=== PATIENT | male | born 1975 | race Caucasian/White ===

== ENCOUNTER 2017-09-17 18:06 | Emergency (ER) | payer OTHER ==
[~2017-09-17] VITALS: Ht 177.8 cm; Wt 138.0 kg
[2017-09-17 18:10] VITALS: TEMP 36.7; Ht 177.8 cm; Wt 138.0 kg
[2017-09-17] MEDS ORDERED: LOSA1TAB PO (18:45)
--- NOTE | 2017-09-17 18:46 | EMERGENCY ROOM VISIT NOTE ---
History First contact with patient: 18:13 Chief Complaint: FEVER Stated Complaint: SOAR THROAT, FEVER History of Present Illness The patient is a 42 year old male who presents to the Emergency Room with complaints of a sore throat which began 2 days ago. The patient states that he woke up 2 days ago with a mild sore throat which has been gradually worsening. He states that the throat feels scratchy and rates his discomfort a 10/10. He has had a mild cough. He states it has been hard to sleep due to the sore throat for the past few nights. He has been feeling feverish, but has not taken his temperature. He does not smoke. He has not taken any medications for his pain. He denies any headache, neck pain, nausea/vomiting, chest pain, shortness of breath, blurred vision or dizziness. The patient reports a history of hypertension and was previously taking losartan, but states that he has not seen a primary care provider in some time and does not have a prescription for this any longer. Review of Systems A complete 10 point review of systems was reviewed with the patient with pertinent positives and negatives as per history of present illness. All else were negative. Social History Smoking Status: Former Smoker Current/Historical Medications Scheduled Azithromycin (Zithromax Z-Jose F), 0 PO UD Losartan Potassium (Cozaar), 1 TAB PO DAILY Scheduled PRN Diphenhy/Alum/Mag/Sucralfa (Magic Swizzle - Diphenhy/Alum/Mag/Sucralfa), 1 TSP PO Q4H PRN for Pain Physical Exam Vital Signs Date Time Temp Pulse Resp B/P (MAP) Pulse Ox O2 Delivery O2 Flow Rate FiO2 09/17/17 19:42 76 16 167/101 98 09/17/17 18:43 180/106 97 Room Air 09/17/17 18:10 36.7 100 18 213/122 96 Physical Exam VITALS: Vitals are noted on the nurse's note and reviewed by myself. Vital signs stable. GENERAL: This is a 42-year-old male, in no acute distress, nondiaphoretic, well- developed well-nourished. SKIN: The skin was without rashes. EARS: External auditory canals clear, tympanic membranes pearly black without erythema or effusion bilaterally. EYES: Pupils equal round and reactive to light and accommodation. NOSE: Patent, turbinates without inflammation or discharge. No sinus tenderness. MOUTH: Mucous membranes moist. Tonsils are not enlarged. There is no exudate present. The posterior oropharynx is slightly injected. NECK: Supple without nuchal rigidity. No lymphadenopathy. HEART: Regular rate and rhythm without murmurs gallops or rubs. LUNGS: Clear to auscultation bilaterally without wheezes, rales or rhonchi. No retractions or accessory muscle use. NEURO: Patient was alert and oriented to person place and time. Medical Decision & Procedures Medications Administered Medications (Trade) Dose Ordered Sig/Aayush Route Start Time Stop Time Status Last Admin Dose Admin Losartan Potassium (coZAAR TAB) 50 mg NOW STAT PO 09/17/17 18:57 09/17/17 19:01 DC 09/17/17 19:21 50 MG Medical Decision Or enteritis, viral pharyngitis, upper respiratory infection, acute bronchitis, mononucleosis, influenza, among others. The patient was evaluated as above. He is very well-appearing and has a benign exam. He has some mild erythema of the posterior oropharynx but nothing suggestive of bacterial infection at this time. A strep swab was obtained and was negative. Culture is pending. I feel the patient likely has a viral upper respiratory infection. Positive his symptoms are likely caused by some postnasal drip. He was counseled on span-eaw-swkjwrm measures. The patient was very persistent that he may need an antibiotic and will not be able to follow-up with a primary care provider. For this reason, he was given a prescription of Zithromax but was told not to fill this unless he has worsening symptoms or fevers in 3-4 days. He was given Magic swizzle for symptomatic relief of his sore throat, as this is very distressing to him. Incidentally, the patient's blood pressure was noted to be significantly elevated in triage, at 213/122. The patient's blood pressure was rechecked when he had that in his room for a few minutes and was found to be 180/106. The patient does not have any dizziness, blurred vision, chest pain or shortness of breath. He does report a history of hypertension and has not been taking his blood pressure medication for some time now. The patient will be restarted on his losartan and was instructed to have very close follow-up with his primary care provider for recheck of his blood pressure and medication adjustments. He verbalized understanding of my assessment and treatment plan and was discharged home in good condition. Medication Reconcilliation Current Medication List: was personally reviewed by me Blood Pressure Screening Patient's blood pressure: Elevated blood pressure Blood pressure disposition: Referred to PCP Impression Primary Impression: Viral pharyngitis Departure Information Dispostion Home / Self-Care Condition GOOD Prescriptions Azithromycin (ZITHROMAX Z-JOSE F) 250 Mg Tab 0 PO UD, #1 PKT 2 TABS DAY 1, THEN 1 TAB DAILY FOR 4 DAYS Prov: Graciela Truong PA-C 09/17/17 Diphenhy/Alum/Mag/Sucralfa (Magic Swizzle - Diphenhy/Alum/Mag/Sucralfa) Susp 1 TSP PO Q4H Y for Pain, #150 ML 30ML DIPHENHYDRAMINE SLN 12.5/5ML 60ML MAALOX 4GM CARAFATE SWISH AND SPIT Prov: Graciela Truong PA-C 09/17/17 Losartan Potassium (COZAAR) 25 Mg Tab 1 TAB PO DAILY for 30 Days, #30 TAB Prov: Graciela Truong PA-C 09/17/17 Referrals Figueroa Espinosa M.D. (PCP) Patient Instructions My [facility] Additional Instructions Take the losartan daily prescribed for your blood pressure. You will need close follow-up for this. You should contact her primary care provider to schedule an appointment this week to have your blood pressure rechecked. For pain control, you can use the following ewdi-zbu-sxfafiq medicines (if >12 yo): - Regular strength (325mg/tab) Tylenol (acetaminophen) 2 tabs every 4-6 hours as needed. Do not exceed 12 tablets in a 24 hour period. Avoid taking more than 4 grams (4000 mg) of Tylenol per day. This includes any other sources of acetaminophen you may take on a regular basis. - Regular strength (200 mg/tab) Advil (ibuprofen) 1-2 tabs every 4-6 hours as needed. Do not exceed a dose of 3200 mg per day. Magic swizzle: Swish 5 mL in your mouth and spit. You may use this every 4 hours as needed for pain. Only fill the prescription for the antibiotic if your symptoms worsen in the next 3-4 days or if you develop high fevers or cough productive of sputum. As with any visit to the emergency Department, you should follow-up with her primary care provider. Return to the emergency department with worsening fevers, shortness of breath, vomiting, chest pain, dizziness, blurred vision or any other new/concerning symptoms.
[2017-09-17] MEDS ORDERED: LOSARTAN POTASSIUM 25 MG TAB PO STA (18:57)
[2017-09-17] MEDS ORDERED: MAGIC SWIZZLE PO STA ×2 (18:57→19:05)
[2017-09-17] MEDS ORDERED: MAGIC1 PO (19:25)
[2017-09-17] MEDS ORDERED: AZITTAB PO (19:29)
[2017-09-17 19:42] VITALS: BP 167/101; PULSE 76; O2SAT 98
== END 2017-09-17 19:43 | disposition home or self-care (01) ==
LOC: C.EDB 18:07
DX: J02.8 Acute pharyngitis due to other specified organisms (principal); I10 Essential (primary) hypertension; Z87.891 Personal history of nicotine dependence

== ENCOUNTER 2025-02-05 23:28 | Inpatient (IN) ==
[2025-02-06] MEDS: SODIUM CHLORIDE 0.9% 1,000 ML IV ONE (00:05)
[2025-02-06] MEDS: ONDANSETRON INJ 2 MG/ML 2 ML VIAL IV STA (00:06)
--- NOTE | 2025-02-06 00:09 | Emergency Department Note ---
History of Present Illness General Chief complaint: Abdominal Pain Stated complaint: ABD PAIN Time Seen by Provider: 02/05/25 23:38 History of Present Illness Maximum Pain Intensity: 10 This 49-year-old male presents ER complaining of abdominal pain with subjective fever and chills for the past few days steadily getting worse. No colonoscopy. No history of diverticulitis. Patient feels constipated. He now feels nauseous. Patient denies chest pain, dyspnea, urinary symptoms, flank pain. Home Medications Medication Instructions Recorded Confirmed Type albuterol sulfate 90 mcg/actuation 2 puff inhalation Q4 PRN 02/06/25 02/06/25 History aerosol inhaler COUGH,SOB,WHEEZING codeine 10 mg-guaifenesin 100 mg/5 5 ml PO Q8 PRN Cough 02/06/25 02/06/25 History mL oral liquid famotidine 20 mg tablet 20 mg PO BID 02/06/25 02/06/25 History fluticasone 250 mcg-salmeterol 50 1 inh inhalation AMHS 02/06/25 02/06/25 History mcg/dose blistr powdr for inhalation glipizide 5 mg tablet, extended 5 mg PO DAILYBB 02/06/25 02/06/25 History release 24 hr hydrochlorothiazide 12.5 mg capsule 12.5 mg PO QAM 02/06/25 02/06/25 History irbesartan 300 mg tablet 300 mg PO QAM 02/06/25 02/06/25 History metformin 500 mg tablet,extended 1,000 mg PO AMHS 02/06/25 02/06/25 History release 24 hr Allergies Allergy/AdvReac Type Severity Reaction Status Date / Time Penicillins Allergy Mild HIVES, Unverified 02/06/25 01:33 ITCHING Sulfa (Sulfonamide Allergy Mild HIVES Unverified 03/05/19 09:18 Antibiotics) PRICILLA D Allergy Mild ITCHING, Uncoded 03/05/19 09:18 HIVES Past Med/Surg History Problem List Pneumoperitoneum (Acute) Diverticulitis (Acute) COVID-19 (Acute) Asthma No significant past surgical history Social History Smoking Status: Never smoker Preferred Language: Spanish current occupational status: employed Feels Safe at Home: Yes Review of Systems A total of 10 systems reviewed and were otherwise negative Physical Exam Vital Signs Vital Signs - 24 hr 02/05/25 23:14 02/05/25 23:14 02/05/25 23:51 Temperature 37.7 C H 37.7 C H Temperature Source Oral Oral Pulse Rate 91 H 112 H Pulse Rate [Apical] Pulse Rate from SpO2 Sensor 92 H Pulse Rhythm Regular Pulse Strength Normal Respiratory Rate 17 18 Respiratory Effort / Characteristics Non-Labored Spontaneous Respiratory Depth Normal Respiratory Pattern Regular Blood Pressure 121/87 Blood Pressure [Right Arm] Blood Pressure Mean 98 Blood Pressure Mean [Right Arm] Blood Pressure Position Sitting Pulse Oximetry 95 95 Oxygen Delivery Method Room Air Room Air Sepsis Recent Fever Within 48 Hours No Sepsis New/Unexplained Change in Mental Status N/A Sepsis Action Taken by Nursing No Action Required 02/06/25 00:00 02/06/25 00:04 02/06/25 00:08 Temperature Temperature Source Pulse Rate 90 90 Pulse Rate [Apical] 79 Pulse Rate from SpO2 Sensor 90 Pulse Rhythm Pulse Strength Respiratory Rate 8 L 18 Respiratory Effort / Characteristics Respiratory Depth Respiratory Pattern Blood Pressure 132/71 Blood Pressure [Right Arm] 132/71 Blood Pressure Mean 91 Blood Pressure Mean [Right Arm] 91 Blood Pressure Position Pulse Oximetry 95 97 Oxygen Delivery Method Room Air Sepsis Recent Fever Within 48 Hours Sepsis New/Unexplained Change in Mental Status Sepsis Action Taken by Nursing 02/06/25 01:00 02/06/25 02:00 02/06/25 03:00 Temperature Temperature Source Pulse Rate Pulse Rate [Apical] 88 83 82 Pulse Rate from SpO2 Sensor Pulse Rhythm Pulse Strength Respiratory Rate 17 16 14 Respiratory Effort / Characteristics Respiratory Depth Normal Respiratory Pattern Blood Pressure Blood Pressure [Right Arm] 125/76 151/96 H 134/82 Blood Pressure Mean Blood Pressure Mean [Right Arm] 92 114 99 Blood Pressure Position Pulse Oximetry 99 98 98 Oxygen Delivery Method Room Air Sepsis Recent Fever Within 48 Hours Sepsis New/Unexplained Change in Mental Status Sepsis Action Taken by Nursing VITALS: Vitals are noted on the nurse's note and reviewed by myself. Vital signs stable. GENERAL: Pleasant gentleman with family present, in no acute distress, nondiaphoretic, well-developed well-nourished. SKIN: Capillary reflex less than 2 seconds. HEENT: Normocephalic. PERRLA. EOMI. Nares patent. Mucous membranes moist. Neck is supple without nuchal rigidity. HEART: Regular rate and rhythm LUNGS: Clear to auscultation bilaterally without wheezes, rales or rhonchi. No retractions or accessory muscle use. ABDOMEN: Positive bowel sounds x 4. Normal tympanic percussion. Soft, tender to palpation left lower quadrant, without masses or organomegaly. Julian sign negative. No guarding or rebound tenderness. no CVA tenderness MUSCULOSKELETAL: No gross musculoskeletal defects. NEURO: Patient was alert and oriented to person place and time. No focal neurological deficits. Course Administered Medications Discontinued Medications Acetaminophen (Ofirmev) 1,000 mg in 100 mls @ 400 mls/hr IV NOW STA Stop: 02/06/25 00:03 Last Infusion: 02/06/25 00:55 Dose: Infused Documented By: Admin: 02/06/25 00:10 Dose: 400 mls/hr Documented By: KATHERINE Ciprofloxacin (Cipro / D5w) 400 mg in 200 mls @ 100 mls/hr IV NOW STA; Protocol Stop: 02/06/25 01:48 Last Infusion: 02/06/25 03:00 Dose: Infused Documented By: Admin: 02/06/25 00:49 Dose: 100 mls/hr Documented By: LILIAN Metronidazole (Flagyl) 500 mg in 100 mls @ 100 mls/hr IV NOW STA; Protocol Stop: 02/06/25 00:48 Last Infusion: 02/06/25 02:01 Dose: Infused Documented By: Admin: 02/06/25 00:50 Dose: 100 mls/hr Documented By: LILIAN Sodium Chloride (Nss) 1,000 mls @ 999 mls/hr IV .Q1H1M ONE Stop: 02/06/25 00:49 Last Infusion: 02/06/25 01:16 Dose: Infused Documented By: Admin: 02/06/25 00:05 Dose: 999 mls/hr Documented By: KATHERINE Ioversol (Optiray 320 100ml) 100 ml IV ONCE ONE Stop: 02/06/25 00:28 Last Admin: 02/06/25 00:27 Dose: 93 ml Documented By: RONALD Morphine Sulfate (Morphine Sulfate 4 Mg/Ml 1 Ml Carp\Vial) 4 mg IV NOW STA Stop: 02/06/25 01:22 Last Admin: 02/06/25 01:58 Dose: 4 mg Documented By: MNS Ondansetron HCl (Ondansetron Inj 2 Mg/Ml 2 Ml Vial) 4 mg IV NOW STA Stop: 02/05/25 23:50 Last Admin: 02/06/25 00:06 Dose: 4 mg Documented By: KATHERINE Medical Decision Making Medical Records Attestation: I reviewed the patient's medical records. Home Medications Current Medication List: was personally reviewed by me Laboratory Data Attestation: I reviewed the patient's lab results. 02/05/25 23:49 02/05/25 23:49 Lab Results 02/05/25 02/06/25 02/06/25 Range/Units 23:49 00:16 00:46 WBC 10.66 (4.8-10.8) K/ul RBC 5.25 (4.70-6.10) M/uL Hgb 14.6 (14.0-18.0) g/dl Hct 43.4 (42.0-52.0) % MCV 82.7 (80.0-100.0) fL MCH 27.8 (25.0-34.0) pg MCHC 33.6 (32.0-36.0) g/dL RDW Std Deviation 38.3 (36.4-46.3) fL RDW Coeff of Jason 12.6 (11.5-14.5) % Plt Count 189 (130-400) K/uL MPV 11.6 (9.4-12.4) fL Immature Gran % (Auto) 0.7 % Neut % (Auto) 67.9 % Lymph % (Auto) 19.3 % Ponce % (Auto) 9.9 % Eos % (Auto) 1.8 % Baso % (Auto) 0.4 % Neut # (Auto) 7.24 H (1.40-6.50) K/uL Lymph # (Auto) 2.06 (1.20-3.40) K/uL Ponce # (Auto) 1.06 H (0.11-0.59) K/uL Eos # (Auto) 0.19 (0.00-0.50) K/uL Baso # (Auto) 0.04 (0.00-0.20) K/uL Immature Gran # (Auto) 0.07 (0.01-0.20) K/uL Sodium 135 L (136-145) mmol/L Potassium 3.8 (3.5-5.1) mmol/L Chloride 100 (98-107) mmol/L Carbon Dioxide 25 (21-32) mmol/L Anion Gap 10 (3-11) BUN 23 (6-23) mg/dl Creatinine 1.32 (0.6-1.4) mg/dl Est Cr Clr Drug Dosing 89.8 ml/min eGFR 65.71 BUN/Creatinine Ratio 17.4 (10-20) Glucose 227 H (70-99(Fasting)) mg/dl Lactate 0.8 (0.4-2.0) mmol/L Calcium 8.9 (8.6-10.3) mg/dl Total Bilirubin 1.4 H (0.2-1.0) mg/dl AST 10 L (13-39) U/L ALT 15 (7-52) U/L Alkaline Phosphatase 60 (34-104) U/L Total Protein 6.8 (6.0-8.3) gm/dl Albumin 4.1 (3.4-5.0) gm/dl Globulin 2.7 (2.5-4.0) gm/dl Albumin/Globulin Ratio 1.5 (0.9-2) Lipase 40 (11-82) U/L Urine Color Yellow Urine Appearance Clear (Clear) Urine pH 5.0 (4.5-7.5) Ur Specific Mentor > 1.045 H (1.000-1.030) Urine Protein Negative (Negative) Urine Glucose (UA) 2+ H (Negative) Urine Ketones 1+ H (Negative) Urine Blood Negative (Negative) Urine Nitrite Negative (Negative) Urine Bilirubin Negative (Negative) Urine Urobilinogen Negative (Negative) Ur Leukocyte Esterase Negative (Negative) Imaging Data Attestation: I personally reviewed and interpreted this imaging study as follows: Radiologist's Impression: Abdomen/Pelvis CT 02/05/25 23:49 EXAM: CT abd pelvis IV con only CLINICAL HISTORY: LLQ pain, fever TECHNIQUE: Contiguous axial images were obtained from the level of the diaphragm to the pubic symphysis with intravenous contrast. Coronal and sagittal reconstructions were likewise performed and indicated to increase the sensitivity for detecting clinically relevant pathology. If IV contrast material had not been administered, the likelihood of detecting abnormalities relevant to the patient's condition would have been substantially decreased. CT scan was performed according to ALARA (as low as reasonable achievable). COMPARISON: 03/05/2019 06:06:40 CUSTOMER QUALITY SPECIALIST FINDINGS: The visualized lung bases are clear. The liver is normal in size and reduced attenuation. No focal liver lesions are seen. There is no intra or extrahepatic biliary ductal dilatation. Hepatic vasculature is patent. The gallbladder is distended and shows few soft calculi with normal wall thickness. The spleen, pancreas, and adrenal glands are unremarkable. The kidneys are normal in size and attenuation. There is no hydronephrosis or perinephric fat stranding. No renal calculi or renal masses are identified. The ureters are normal in caliber and no ureteral calculi are seen. The bladder is normal in contour. Pelvic viscera are unremarkable. No focal or diffuse bowel wall thickening or evidence of bowel obstruction is identified. No evidence of inflamed appendix. Abdominal and pelvic vasculature is patent. No adenopathy or fluid collections are seen. No aggressive appearing osseous lesions are identified. Few small descending and sigmoid diverticulosis with mild fat stranding is noted adjacent to the sigmoid diverticula along with pneumoperitoneum:- suggestive of sigmoid diverticulitis IMPRESSION: 1. Few small descending and sigmoid diverticulosis with mild fat stranding is noted adjacent to the sigmoid diverticula along with pneumoperitoneum: suggestive of sigmoid diverticulitis with perforation. New finding. 2. Uncomplicated cholelithiasis.-stable. 3. Hepatic steatosis.-stable. Electronically signed by Figueroa Manning 02-06-2025 03:37 AM MDM Narrative Prior records/ancillary studies reviewed. Triage Nursing notes reviewed. Additional history obtained from family. The patient's history was concerning for abdominal pain. Differential diagnosis: Etiologies such as appendicitis, diverticulitis, PUD, biliary pathology, UTI, pancreatitis, obstruction, mesenteric ischemia, aortic pathology, infections, inflammatory bowel disease, renal colic, as well as others were entertained. Physical examination findings: As above. ER treatment provided: An order was placed for continuous cardiac monitoring. The monitor shows a rate of 60-100 with a sinus rhythm per my Independent interpretation. IV fluids, Tylenol, Cipro and Flagyl for possible diverticulitis On reassessment the patient felt better. Diagnostics interpreted by me: The labs Independently Interpreted by myself revealed no worrisome leukocytosis, negative lactic, hyperglycemia without DKA Imaging studies: Imaging was reviewed and read by radiology Consultation: A consultation was placed with the hospitalist. The case was discussed and diagnostics were reviewed. The patient was evaluated in the ER for further treatment. Consultation was placed with surgery and the case was discussed. Patient will be evaluated by the surgical team. Surgery recommends medical admission and n.p.o. Exam and history seem consistent with diverticulitis with pneumoperitoneum. No drainable abscess. Negative lactic. No high white count. He was given antibiotics upon initial evaluation as I was concerned he did have diverticulitis. Blood cultures are pending. Medicine and surgery were consulted. Patient was admitted to the medical service. He is agreeable. By the evaluation outlined above emergent etiologies such as appendicitis, PUD, biliary pathology, UTI, pancreatitis, obstruction, mesenteric ischemia, aortic pathology, inflammatory bowel disease, renal colic, as well as others were deemed relatively unlikely. The pt informed about the findings as listed above. All questions were answered and pleased with the treatment. The chart was completed utilizing [employer] Speech voice recognition software. Grammatical errors, random word insertions, pronoun errors, and incomplete sentences are an occassional consequence of this system due to software limitations, ambient noise, and hardware issues. Any formal questions or concerns about the content, text, or information contained within the body of this dictation should be directly addressed to the physician shop assistant for clarification. Impression & Plan Diverticulitis, Pneumoperitoneum Discharge Plan Visit Data Chief Complaint: Abdominal Pain Stated Complaint: ABD PAIN ED Provider: Jeanne Wilkinson ED Midlevel Provider: Meaghan Joseph Discharge Problem: Diverticulitis, Pneumoperitoneum Patient Disposition: Admitted As Inpatient Condition: Fair Forms Stand Alone Forms: [employer] [facility] [employer] Prescriptions Prescriptions: No Action fluticasone propion-salmeterol 250-50 mcg/dose blister with device 1 inh INHALATION AMHS hydrochlorothiazide 12.5 mg capsule 12.5 mg PO QAM albuterol sulfate 90 mcg/actuation HFA aerosol inhaler 2 puff INHALATION Q4 PRN (Reason: COUGH,SOB,WHEEZING) irbesartan 300 mg tablet 300 mg PO QAM codeine-guaifenesin 10-100 mg/5 mL liquid 5 ml PO Q8 PRN (Reason: Cough) glipizide 5 mg tablet extended release 24hr 5 mg PO DAILYBB famotidine 20 mg tablet 20 mg PO BID metformin 500 mg tablet extended release 24 hr 1,000 mg PO AMHS Referrals Referrals: Zeny Montes PA-C [Primary Care Provider] -
[2025-02-06] MEDS: ACETAMINOPHEN 1,000 MG/100 ML VIAL IV STA (00:10)
[2025-02-06 00:13] LABS: Albumin Globulin Ratio 1.5 (0.9-2); Albumin Level 4.1 gm/dl (3.4-5.0); BUN Creatinine Ratio 17.4 (10-20); Bilirubin,Total 1.4 mg/dl (0.2-1.0); Calcium 8.9 mg/dl (8.6-10.3); Creatinine Clr Calc Pharmacy 89.8 ml/min; Globulin 2.7 gm/dl (2.5-4.0); Potassium 3.8 mmol/L (3.5-5.1); Total Protein 6.8 gm/dl (6.0-8.3)
[2025-02-06 00:18] LABS: Basophils # (auto) 0.04 K/uL (0.00-0.20); Basophils % (auto) 0.4 %; Eosinophils # (auto) 0.19 K/uL (0.00-0.50); Eosinophils % (auto) 1.8 %; Hematocrit (blood only) 43.4 % (42.0-52.0); Hemoglobin 14.6 g/dl (14.0-18.0); Immature Granulocytes # (auto) 0.07 K/uL (0.01-0.20); Immature Granulocytes % (auto) 0.7 %; Lymphocytes # (auto) 2.06 K/uL (1.20-3.40); Lymphocytes % (auto) 19.3 %; Mean Corpuscular Hemoglobin 27.8 pg (25.0-34.0); Mean Corpuscular Hgb Conc 33.6 g/dL (32.0-36.0); Mean Corpuscular Volume 82.7 fL (80.0-100.0); Mean Platelet Volume 11.6 fL (9.4-12.4); Monocytes # (auto) 1.06 K/uL (0.11-0.59); Monocytes % (auto) 9.9 %; Neutrophils # (auto) 7.24 K/uL (1.40-6.50); Neutrophils % (auto) 67.9 %; Platelet Count 189 K/uL (130-400); RDW Coefficient of Variation 12.6 % (11.5-14.5); RDW Standard Deviation 38.3 fL (36.4-46.3); Red Blood Count 5.25 M/uL (4.70-6.10); White Blood Count 10.66 K/ul (4.8-10.8)
[2025-02-06] MEDS: OPTIRAY 320 100ml IV ONE (00:27)
[2025-02-06] MEDS: CIPROFLOXACIN / D5W 400 MG/200 ML BAG IV STA (00:49)
[2025-02-06] MEDS: metroNIDAZOLE 500 MG/100 ML BAG IV STA (00:50)
[2025-02-06 00:54] LABS: Appearance Urine Clear (Clear); Bilirubin Urine Negative (Negative); Blood Urine Negative (Negative); Color Urine Yellow; Glucose Urine UA 2+ (Negative); Ketones Urine 1+ (Negative); Leukocyte Esterase Urine Negative (Negative); Nitrite Urine Negative (Negative); Protein Urine Negative (Negative); Specific Gravity Urine > 1.045 (1.000-1.030); Urobilinogen Urine Negative (Negative)
[2025-02-06] MEDS: MoRPHine SULFATE 4 MG/ML 1 ML CARP\\VIAL IV STA (01:58)
--- NOTE | 2025-02-06 03:37 | CT Scan Report ---
EXAM: CT abd pelvis IV con only CLINICAL HISTORY: LLQ pain, fever TECHNIQUE: Contiguous axial images were obtained from the level of the diaphragm to the pubic symphysis with intravenous contrast. Coronal and sagittal reconstructions were likewise performed and indicated to increase the sensitivity for detecting clinically relevant pathology. If IV contrast material had not been administered, the likelihood of detecting abnormalities relevant to the patient's condition would have been substantially decreased. CT scan was performed according to ALARA (as low as reasonable achievable). COMPARISON: 03/05/2019 06:06:40 HOTEL OPERATION MANAGER FINDINGS: The visualized lung bases are clear. The liver is normal in size and reduced attenuation. No focal liver lesions are seen. There is no intra or extrahepatic biliary ductal dilatation. Hepatic vasculature is patent. The gallbladder is distended and shows few soft calculi with normal wall thickness. The spleen, pancreas, and adrenal glands are unremarkable. The kidneys are normal in size and attenuation. There is no hydronephrosis or perinephric fat stranding. No renal calculi or renal masses are identified. The ureters are normal in caliber and no ureteral calculi are seen. The bladder is normal in contour. Pelvic viscera are unremarkable. No focal or diffuse bowel wall thickening or evidence of bowel obstruction is identified. No evidence of inflamed appendix. Abdominal and pelvic vasculature is patent. No adenopathy or fluid collections are seen. No aggressive appearing osseous lesions are identified. Few small descending and sigmoid diverticulosis with mild fat stranding is noted adjacent to the sigmoid diverticula along with pneumoperitoneum:- suggestive of sigmoid diverticulitis IMPRESSION: 1. Few small descending and sigmoid diverticulosis with mild fat stranding is noted adjacent to the sigmoid diverticula along with pneumoperitoneum: suggestive of sigmoid diverticulitis with perforation. New finding. 2. Uncomplicated cholelithiasis.-stable. 3. Hepatic steatosis.-stable. Electronically signed by Figueroa Manning 02-06-2025 03:37 AM
--- NOTE | 2025-02-06 04:07 | Surgery Consultation ---
<Statement entered by Barbara Gomez DO - 02/06/25 10:26> I have seen and examined this patient this am. I agree with this plan and NPO except may have few ice chips per shift for oral comfort. Date of Consultation February 06, 2025 Assessment & Plan (1) Diverticulitis: (2) Pneumoperitoneum: I discussed with the treating emergency room physician and the patient is being admitted on the hospitalist service. From surgery perspective we recommend the following: Analgesics to be provided Antiemetics to be provided Strict n.p.o. status should be implemented Antibiotics have been initiatedthe treating clinician emergency department has utilized Cipro and Flagyl due to a noted penicillin allergy. This antibiotic regimen should continue Patient to be hydrated with intravenous fluids Serial labs should be followed At the present time the patient is nontoxic appearing (he is normotensive without tachycardia and only a low-grade fever. He does not have leukocytosis or an elevated lactic acid level. Acute kidney injury is not noted on labs. He does not have signs of peritonitis on physical exam). Therefore we will attempt conservative measures as outlined above. I did discuss with the patient the findings on his CT scan. I did discuss with the patient that it would be preferable to treat him in a conservative manner as noted above, as any emergent surgery would likely require a temporary colostomy. I also discussed with the patient that it is preferable for patients to have a recent/up-to-date colonoscopy prior to doing bowel surgery. I also discussed with the patient that there is a possibility however, that conservative measures as outlined above may fail and he will require an emergent operation requiring a temporary colostomy. He did express his understanding and had all of his questions answered. I discussed this case and the above plan with my attending physician, Dr. Plascencia SCDs along to be used for DVT prevention for the present time until it is ascertained whether or not the patient will require any surgical/procedural intervention Additional recommendations were forthcoming based on his clinical course as it unfolds History of Present Illness Reason for Consultation: Diverticulitis History of Present Illness This is a 49-year-old male who presented to the emergency department secondary to abdominal pain that began approximately 3 days ago. Patient notes that the pain is located in a bandlike fashion across his lower abdomen without radiation or modifying factors (other than that it was improved with medicines administered in the emergency department). Patient also notes that he has not had a solid bowel movement approximately 3 days and has had associated nausea without vomiting, which was a prompting factors causing him to present to the emergency department. Patient notes he has never had any abdominal surgeries in the past. He also notes that he has yet to have a colonoscopy (he notes he was planning on scheduling in April of this year). At home the patient did not report any fevers but was noted to have a low-grade fever in the emergency department. Since arrival to the emergency department patient has had labs and imaging which I independent reviewed. CBC revealed white blood cell count was normal. Hemoglobin and hematocrit as well as a platelet count was normal. Chemistry profile showed sodium is 135 with a normal potassium. BUN and creatinine were both within the normal range. He did not have an elevated lipase. He did have a slight elevation of his total bilirubin at 1.4, but the remainder of his LFTs were unremarkable. Urinalysis was not indicative of infection. A lactic acid level was not elevated at 0.8. Imaging consisted of a CT scan of the abdomen pelvis. This showed the patient had sigmoid diverticulosis with fat stranding adjacent to the sigmoid diverticula suggestive of sigmoid diverticulitisthere is also adjacent pneumoperitoneum noted. At the time of my interview he was resting comfortably in bed he was in no distress. Concerning past medical history the patient says he is treated for hypertension and diabetes (type II) Concerning past surgical history he has never had surgery Concerning allergies he notes penicillin causes itching/hives Concerning social history he is a lifetime non-smoker Concerning family history his father suffered from coronary artery disease Allergies Allergy/AdvReac Type Severity Reaction Status Date / Time fexofenadine [From Danielle-D] Allergy Mild Itching, Verified 02/06/25 04:15 Hives Penicillins Allergy Mild HIVES, Unverified 02/06/25 01:33 ITCHING pseudoephedrine Allergy Mild Itching, Verified 02/06/25 04:15 [From Danielle-D] Hives Sulfa (Sulfonamide Allergy Mild HIVES Unverified 03/05/19 09:18 Antibiotics) Home Medications Medication Instructions Recorded Confirmed Type albuterol sulfate 90 mcg/actuation 2 puff inhalation Q4 PRN 02/06/25 02/06/25 History aerosol inhaler COUGH,SOB,WHEEZING codeine 10 mg-guaifenesin 100 mg/5 5 ml PO Q8 PRN Cough 02/06/25 02/06/25 History mL oral liquid famotidine 20 mg tablet 20 mg PO BID 02/06/25 02/06/25 History fluticasone 250 mcg-salmeterol 50 1 inh inhalation AMHS 02/06/25 02/06/25 History mcg/dose blistr powdr for inhalation glipizide 5 mg tablet, extended 5 mg PO DAILYBB 02/06/25 02/06/25 History release 24 hr hydrochlorothiazide 12.5 mg capsule 12.5 mg PO QAM 02/06/25 02/06/25 History irbesartan 300 mg tablet 300 mg PO QAM 02/06/25 02/06/25 History metformin 500 mg tablet,extended 1,000 mg PO AMHS 02/06/25 02/06/25 History release 24 hr Patient History Social History Smoking Status: Never smoker Preferred Language: Vietnamese current occupational status: employed Feels Safe at Home: Yes Review of Systems Review of Systems: All systems reviewed & are unremarkable except as noted in HPI & below Physical Exam Constitutional: WD/WN, vitals as above Eyes: no conjunctival abnormality Wears glasses ENMT: Ears: no hearing impairment and no external ear abnormality Oral mucosas dry Neck: trachea midline Respiratory: normal respiratory effort; no respiratory distress and no labored breathing Cardiovascular: Rate/Rhythm: regular rate and regular rhythm Vessels: dorsalis pedis pulses present and radial pulses present Gastrointestinal (Abdomen): Abdomen is soft with minimal distention. Patient did have pain with palpation across his lower abdomen which appear to be greatest in the left lower quadrant. There is no voluntary guarding. There is only slight rebound tenderness but no overt signs of peritonitis Musculoskeletal: No calf tenderness Skin: no rashes Neurologic: moves all extremities Psychiatric: A+Ox3, euthymic affect Results & Data Vital Signs (Past 12 Hours) Vital Signs Temp Pulse Pulse Resp BP BP Pulse Ox 02/06/25 03:00 82 14 134/82 98 02/06/25 02:00 83 16 151/96 H 98 02/06/25 01:00 88 17 125/76 99 02/06/25 00:08 90 02/06/25 00:04 90 18 132/71 97 02/06/25 00:00 79 8 L 132/71 95 02/05/25 23:51 112 H 18 95 02/05/25 23:14 37.7 C H 02/05/25 23:14 37.7 C H 91 H 17 121/87 95 O2 Del Method 02/06/25 03:00 02/06/25 02:00 02/06/25 01:00 Room Air 02/06/25 00:08 02/06/25 00:04 Room Air 02/06/25 00:00 02/05/25 23:51 Room Air 02/05/25 23:14 02/05/25 23:14 Room Air PG Care Time/CCT Total # of Minutes Spent Total Time Spent with Patient: Total time spent is greater than 50% in coordination of care (as documented) at patient's floor/unit and/or counseling patient: Coding Level of Care Code 32156 IN/OBS CONSULT LVL 5,80M Diagnoses Diverticulitis K57.92 Pneumoperitoneum K66.8
[2025-02-06] MEDS: SODIUM CHLORIDE 0.9% 1,000 ML IV SCH ×3 (04:22→17:40)
--- NOTE | 2025-02-06 04:42 | History & Physical Report ---
Date of Service February 06, 2025 Assessment & Plan (1) Sepsis: Plan: Sepsis secondary to complicated diverticulitis hypertension, slightly elevated bronchial asthma, stable DM2 on oral medications, well-controlled as of recent hemoglobin A1c of 6.24 December 2023 GERD, stable on home H2 aidee past tobacco abuse Admit to med/tele CS, Ertapenem General Surgery consult Re: Complicated diverticulitis (Patient already seen at the ER by provider who recommends strict n.p.o. status.) Outpatient GI consult for colonoscopy (Patient was scheduled for his for screening colonoscopy April 2025.) Basal bolus insulin adjusted for n.p.o. status, ISS BG goal 110-140, update hemoglobin A1c DVT prophylaxis. SCDs as per general surgery specifications given possible procedure Full code Text document was generated using [employer] voice recognition software. It may contain grammatical or spelling errors. Kindly contact undersigned for clarification of any documentation item in question. History of Present Illness Chief Complaint: Abdominal pain Primary Care Provider: Zeny Montes PA-C History obtained from patient, family, and records. Medical history significant for hypertension, bronchial asthma, DM2 on oral medications, GERD, past tobacco abuse. Few days history of achy lower abdominal pain which slowly progressed. Constipation symptoms which is unusual for him. Chills at home. Denies chest pain, SOB. Cipro and Flagyl administered at the ER for perforated sigmoid diverticulitis on CT. Medical History as above No prior colonoscopies Surgical History : None Family History : Asthma, DM, heart disease Personal/Social history : Past tobacco abuse, occasional EtOH intake, EMT Allergies Allergy/AdvReac Type Severity Reaction Status Date / Time fexofenadine [From Danielle-D] Allergy Mild Itching, Verified 02/06/25 04:15 Hives Penicillins Allergy Mild HIVES, Unverified 02/06/25 01:33 ITCHING pseudoephedrine Allergy Mild Itching, Verified 02/06/25 04:15 [From Danielle-D] Hives Sulfa (Sulfonamide Allergy Mild HIVES Unverified 03/05/19 09:18 Antibiotics) Home Medications Medication Instructions Recorded Confirmed Type albuterol sulfate 90 mcg/actuation 2 puff inhalation Q4 PRN 02/06/25 02/06/25 History aerosol inhaler COUGH,SOB,WHEEZING codeine 10 mg-guaifenesin 100 mg/5 5 ml PO Q8 PRN Cough 02/06/25 02/06/25 History mL oral liquid famotidine 20 mg tablet 20 mg PO BID 02/06/25 02/06/25 History fluticasone 250 mcg-salmeterol 50 1 inh inhalation AMHS 02/06/25 02/06/25 History mcg/dose blistr powdr for inhalation glipizide 5 mg tablet, extended 5 mg PO DAILYBB 02/06/25 02/06/25 History release 24 hr hydrochlorothiazide 12.5 mg capsule 12.5 mg PO QAM 02/06/25 02/06/25 History irbesartan 300 mg tablet 300 mg PO QAM 02/06/25 02/06/25 History metformin 500 mg tablet,extended 1,000 mg PO AMHS 02/06/25 02/06/25 History release 24 hr Past Med/Surg History Problem List Sepsis Pneumoperitoneum (Acute) Diverticulitis (Acute) COVID-19 (Acute) Asthma No significant past surgical history Social History Smoking Status: Never smoker Preferred Language: Mongolian current occupational status: employed Feels Safe at Home: Yes Review of Systems Review of Systems: As per HPI, all other systems reviewed and negative Physical Exam Physical Exam: GENERAL: Slightly uncomfortable, morbidly obese, pleasant, no respiratory distress SKIN: Normal color, warm HEENT: Respectful, Many palpebral conjunctivae, no ptosis, dry buccal mucosa NECK : Supple, no tenderness CHEST : CTA, no tenderness HEART : RRR, no obvious murmurs ABDOMEN: Some distention, hypogastric tenderness EXTREMITIES : Minimal LE swelling, no LE tenderness, palpable pulses, no other conspicuous deformities noted NEUROLOGIC : Coherent, no facial asymmetry, no other gross focality Results & Data Results & Data Vital Signs (Past 12 Hours) Vital Signs Temp Pulse Pulse Resp BP BP Pulse Ox 02/06/25 04:05 82 02/06/25 03:00 82 14 134/82 98 02/06/25 02:00 83 16 151/96 H 98 02/06/25 01:00 88 17 125/76 99 02/06/25 00:08 90 02/06/25 00:04 90 18 132/71 97 02/06/25 00:00 79 8 L 132/71 95 02/05/25 23:51 112 H 18 95 02/05/25 23:14 37.7 C H 02/05/25 23:14 37.7 C H 91 H 17 121/87 95 O2 Del Method 02/06/25 04:05 02/06/25 03:00 02/06/25 02:00 02/06/25 01:00 Room Air 02/06/25 00:08 02/06/25 00:04 Room Air 02/06/25 00:00 02/05/25 23:51 Room Air 02/05/25 23:14 02/05/25 23:14 Room Air Laboratory Results Laboratory Results WBC 10.66 K/ul (4.8-10.8) 02/05/25 23:49 RBC 5.25 M/uL (4.70-6.10) 02/05/25 23:49 Hgb 14.6 g/dl (14.0-18.0) 02/05/25 23:49 Hct 43.4 % (42.0-52.0) 02/05/25 23:49 MCV 82.7 fL (80.0-100.0) 02/05/25 23:49 MCH 27.8 pg (25.0-34.0) 02/05/25 23:49 MCHC 33.6 g/dL (32.0-36.0) 02/05/25 23:49 RDW Std Deviation 38.3 fL (36.4-46.3) 02/05/25 23:49 RDW Coeff of Jason 12.6 % (11.5-14.5) 02/05/25 23:49 Plt Count 189 K/uL (130-400) 02/05/25 23:49 MPV 11.6 fL (9.4-12.4) 02/05/25 23:49 Immature Gran % (Auto) 0.7 % 02/05/25 23:49 Neut % (Auto) 67.9 % 02/05/25 23:49 Lymph % (Auto) 19.3 % 02/05/25 23:49 [place] % (Auto) 9.9 % 02/05/25 23:49 Eos % (Auto) 1.8 % 02/05/25 23:49 Baso % (Auto) 0.4 % 02/05/25 23:49 Neut # (Auto) 7.24 K/uL (1.40-6.50) H 02/05/25 23:49 Lymph # (Auto) 2.06 K/uL (1.20-3.40) 02/05/25 23:49 [place] # (Auto) 1.06 K/uL (0.11-0.59) H 02/05/25 23:49 Eos # (Auto) 0.19 K/uL (0.00-0.50) 02/05/25 23:49 Baso # (Auto) 0.04 K/uL (0.00-0.20) 02/05/25 23:49 Immature Gran # (Auto) 0.07 K/uL (0.01-0.20) 02/05/25 23:49 Sodium 135 mmol/L (136-145) L 02/05/25 23:49 Potassium 3.8 mmol/L (3.5-5.1) 02/05/25 23:49 Chloride 100 mmol/L (98-107) 02/05/25 23:49 Carbon Dioxide 25 mmol/L (21-32) 02/05/25 23:49 Anion Gap 10 (3-11) 02/05/25 23:49 BUN 23 mg/dl (6-23) 02/05/25 23:49 Creatinine 1.32 mg/dl (0.6-1.4) 02/05/25 23:49 Est Cr Clr Drug Dosing 89.8 ml/min 02/05/25 23:49 eGFR 65.71 02/05/25 23:49 BUN/Creatinine Ratio 17.4 (10-20) 02/05/25 23:49 Glucose 227 mg/dl (70-99(Fasting)) H 02/05/25 23:49 Lactate 0.8 mmol/L (0.4-2.0) 02/06/25 00:16 Calcium 8.9 mg/dl (8.6-10.3) 02/05/25 23:49 Total Bilirubin 1.4 mg/dl (0.2-1.0) H 02/05/25 23:49 AST 10 U/L (13-39) L 02/05/25 23:49 ALT 15 U/L (7-52) 02/05/25 23:49 Alkaline Phosphatase 60 U/L (34-104) 02/05/25 23:49 Total Protein 6.8 gm/dl (6.0-8.3) 02/05/25 23:49 Albumin 4.1 gm/dl (3.4-5.0) 02/05/25 23:49 Globulin 2.7 gm/dl (2.5-4.0) 02/05/25 23:49 Albumin/Globulin Ratio 1.5 (0.9-2) 02/05/25 23:49 Lipase 40 U/L (11-82) 02/05/25 23:49 Urine Color Yellow 02/06/25 00:46 Urine Appearance Clear (Clear) 02/06/25 00:46 Urine pH 5.0 (4.5-7.5) 02/06/25 00:46 Ur Specific [place] > 1.045 (1.000-1.030) H 02/06/25 00:46 Urine Protein Negative (Negative) 02/06/25 00:46 Urine Glucose (UA) 2+ (Negative) H 02/06/25 00:46 Urine Ketones 1+ (Negative) H 02/06/25 00:46 Urine Blood Negative (Negative) 02/06/25 00:46 Urine Nitrite Negative (Negative) 02/06/25 00:46 Urine Bilirubin Negative (Negative) 02/06/25 00:46 Urine Urobilinogen Negative (Negative) 02/06/25 00:46 Ur Leukocyte Esterase Negative (Negative) 02/06/25 00:46 Impressions Abdomen/Pelvis CT 02/05/25 23:49 EXAM: CT abd pelvis IV con only CLINICAL HISTORY: LLQ pain, fever TECHNIQUE: Contiguous axial images were obtained from the level of the diaphragm to the pubic symphysis with intravenous contrast. Coronal and sagittal reconstructions were likewise performed and indicated to increase the sensitivity for detecting clinically relevant pathology. If IV contrast material had not been administered, the likelihood of detecting abnormalities relevant to the patient's condition would have been substantially decreased. CT scan was performed according to ALARA (as low as reasonable achievable). COMPARISON: 03/05/2019 06:06:40 CORPORATE DIRECTOR OF HUMAN RESOURCES FINDINGS: The visualized lung bases are clear. The liver is normal in size and reduced attenuation. No focal liver lesions are seen. There is no intra or extrahepatic biliary ductal dilatation. Hepatic vasculature is patent. The gallbladder is distended and shows few soft calculi with normal wall thickness. The spleen, pancreas, and adrenal glands are unremarkable. The kidneys are normal in size and attenuation. There is no hydronephrosis or perinephric fat stranding. No renal calculi or renal masses are identified. The ureters are normal in caliber and no ureteral calculi are seen. The bladder is normal in contour. Pelvic viscera are unremarkable. No focal or diffuse bowel wall thickening or evidence of bowel obstruction is identified. No evidence of inflamed appendix. Abdominal and pelvic vasculature is patent. No adenopathy or fluid collections are seen. No aggressive appearing osseous lesions are identified. Few small descending and sigmoid diverticulosis with mild fat stranding is noted adjacent to the sigmoid diverticula along with pneumoperitoneum:- suggestive of sigmoid diverticulitis IMPRESSION: 1. Few small descending and sigmoid diverticulosis with mild fat stranding is noted adjacent to the sigmoid diverticula along with pneumoperitoneum: suggestive of sigmoid diverticulitis with perforation. New finding. 2. Uncomplicated cholelithiasis.-stable. 3. Hepatic steatosis.-stable. Electronically signed by Figueroa Manning 02-06-2025 03:37 AM
[2025-02-06] MEDS ORDERED: PROMETHAZINE 12.5 MG/50.5 ML BAG IV PRN (04:51)
[2025-02-06] MEDS ORDERED: LORazepam 2 MG/1 ML VIAL IV PRN (04:51)
[2025-02-06] MEDS ORDERED: KETOROLAC TROMETHAMINE 15 MG/ML VIAL IV PRN (04:51)
[2025-02-06] MEDS: MoRPHine SULFATE 4 MG/ML 1 ML CARP\\VIAL IV PRN ×2 (05:30→19:28)
[2025-02-06] MEDS ORDERED: GLUCOSE 40% GEL 15 GM TUBE PO PRN (06:35)
[2025-02-06] MEDS ORDERED: CARBOHYDRATES FOR HYPOGLYCEMIA PO PRN (06:35)
[2025-02-06] MEDS ORDERED: GLUCAGON FOR INJ 1 MG VIAL SQ PRN (06:35)
[2025-02-06] MEDS ORDERED: GLUCOSE 10 TAB/TUBE PO PRN (06:35)
[2025-02-06] MEDS ORDERED: DEXTROSE 50% 50 ML SYRINGE IV PRN (06:35)
[2025-02-06 06:40] LABS: Basophils # (auto) 0.03 K/uL (0.00-0.20); Basophils % (auto) 0.3 %; Eosinophils # (auto) 0.02 K/uL (0.00-0.50); Eosinophils % (auto) 0.2 %; Hematocrit (blood only) 44.8 % (42.0-52.0); Hemoglobin 14.4 g/dl (14.0-18.0); Immature Granulocytes # (auto) 0.05 K/uL (0.01-0.20); Immature Granulocytes % (auto) 0.5 %; Lymphocytes # (auto) 0.74 K/uL (1.20-3.40); Lymphocytes % (auto) 7.5 %; Mean Corpuscular Hgb Conc 32.1 g/dL (32.0-36.0); Mean Corpuscular Volume 87.2 fL (80.0-100.0); Mean Platelet Volume 10.9 fL (9.4-12.4); Monocytes # (auto) 0.92 K/uL (0.11-0.59); Monocytes % (auto) 9.4 %; Neutrophils # (auto) 8.07 K/uL (1.40-6.50); Neutrophils % (auto) 82.1 %; Platelet Count 129 K/uL (130-400); RDW Coefficient of Variation 12.8 % (11.5-14.5); RDW Standard Deviation 41.3 fL (36.4-46.3); Red Blood Count 5.14 M/uL (4.70-6.10); White Blood Count 9.83 K/ul (4.8-10.8)
[2025-02-06 06:52] LABS: INR 1.1 (0.9-1.1); Partial Thromboplastin Ratio 0.9; Partial Thromboplastin Time 25 Seconds (21-31); Prothrombin Time 11.4 Seconds (9.0-12.0)
[2025-02-06 07:06] LABS: Calcium 8.4 mg/dl (8.6-10.3); Potassium 4.3 mmol/L (3.5-5.1)
[2025-02-06 07:12] LABS: BUN Creatinine Ratio 17.4 (10-20); Creatinine Clr Calc Pharmacy 108.8 ml/min
[2025-02-06] MEDS: FAMOTIDINE 20MG IV PUSH 20 MG/5 ML SYR IV SCH (07:25)
[2025-02-06] MEDS: INSULIN ASPART PER UNIT CHARGE SC SCH ×2 (07:39→09:13)
--- OUTSIDE RECORDS SUMMARY | 2025-02-06 08:17 | External Medical Summary | Summary of Care ---
Author Name Unknown Organization [facility] Address [address] [place] [address] Phone [phone] Care Team Providers Care Assistant Professor In Family Studies Name Role Phone Kimi Johnson MD Primary Care Pr ovider Reason for Visit * Reason Onset Date Comments Blood Pressure Check 01/15/2025 Encounter Details Date Type Department Care Team (Late st Contact Info) Description 01/15/2025 Telephone Family Medicine [address] [phone] Kimi Johnson MD [address] [place], [place] [address] [phone] Blood Pressure Check Allergies Active Allergy Reactions Criticality Noted Date Comments Penicillins Hives High 03/21/2002 developed hives at end of amoxil documented as of this encounter (statuses as of 01/16/2025) Medications Contour Next Test In Vitro Strip (Glucose Blood)Indicatio ns:DM type 2, goal HbA1c < 7% ([facility]) Use to test your blood sugar once a day 100 Strip 3 09/10/20 20 Active Karen Microlet LancetsIndicati ons:DM type 2, goal HbA1c < 7% ([facility]) Use to test blood sugar once a day 100 Each 3 09/10/20 20 Active Fluticasone Propionate 50 MCG/ACT Nasal Suspension Administer 1 [place] into nostril in the morning. 16 g 4 01/03/20 24 Active glipiZIDE ER 5 MG Oral Tablet Extended Release 24 Hour (Glucotrol XL)Indications: DM type 2, goal HbA1c < 7% (HCC) TAKE ONE TABLET BY MOUTH BEFORE FIRST MEAL OF THE DAY 90 Tablet 3 01/24/20 24 Active Cyclobenzaprine HCl 10 MG Oral Tablet (Flexeril) Take 1 Tablet by mouth in the morning and 1 Tablet at noon and 1 Tablet before bedtime. 03/03/20 24 Active Famotidine 20 MG Oral Tablet (Pepcid)Indicat ions:Heartburn TAKE ONE TABLET BY MOUTH TWICE DAILY 180 Tablet 1 11/16/19 25 Active metFORMIN HCl ER 500 MG Oral Tablet Extended Release 24 Hour (Glucophage XR)Indications: DM type 2, goal HbA1c < 7% (HCC) Take 2 Tablets by mouth in the morning and 2 Tablets before bedtime. 360 Tablet 1 11/16/19 25 Active Albuterol Sulfate HFA 108 (90 Base) MCG/ACT Inhalation Aerosol Solution Inhale 2 Puffs by mouth every 4 hours as needed for Cough, Shortness of Breath or Wheezing. 18 g 5 11/26/19 25 Active Irbesartan 300 MG Oral Tablet (Avapro)Indicat ions:Primary hypertension Take 1 Tablet by mouth in the morning. 90 Tablet 3 01/02/20 25 Active Fluticasone-Kwabena meterol 250-50 MCG/ACT Inhalation Aerosol Powder Breath Activated (Advair Diskus) Inhale 1 Puff by mouth in the morning and 1 Puff before bedtime. 60 Each 5 01/02/20 25 Active hydroCHLOROthia zide 12.5 MG Oral Capsule Take 1 Capsule by mouth in the morning. 30 Capsule 3 01/17/20 25 Active guaiFENesin-Cod eine 200-10 MG/5ML Oral Liquid Take 5 mL by mouth every 8 hours as needed for Cough. 150 mL 11/26/19 25 025 Discontinued predniSONE 20 MG Oral Tablet (Deltasone) Take 2 Tablets by mouth in the morning for 5 days. 10 Tablet 11/26/19 25 025 Discontinued(P atient preference/dis continuation) predniSONE 20 MG Oral Tablet (Deltasone) Take 2 Tablets by mouth in the morning for 5 days. 10 Tablet 01/02/20 25 025 Discontinued(P atient preference/dis continuation) documented as of this encounter (statuses as of 01/16/2025) Active Problems Problem Noted Date Diagnosed Date CKD (chronic kidney disease), stage II Overview (10/19/2021): EGFR 84 Chronic allergic rhinitis 11/02/2017 DM type 2, goal HbA1c < 7% 12/20/2016 Overview (07/08/2020): hgba1c 6.5 Mild persistent asthma without complication 08/17 Gastroesophageal reflux disease without esophagi tis 05/20/2015 HTN, goal below 140/90 08/31/2012 documented as of this encounter (statuses as of 01/16/2025) Resolved Problems Problem Noted Date Diagnosed Date Resolved Date Morbid obesity with BMI of 40.0-44.9, adult 05/12/2021 01/01/2025 Overview (05/12/2021): 290 Body mass index (BMI) of 40. 0 to 44.9 in adult 07/24/2018 06/02/2021 Overview: Per Obesity protocol #1 Allergic rhinitis 12/20/2016 10/19/2021 Asthma exacerbation 08/26/2015 08/26/20 15 Prediabetes 07/15/2015 07/08/2020 BMI 45.0-49.9, adult 05/20/2015 018 Overview: Per Obesity protocol #1 ADVANCE DIRECTIVE INFORMATION 09/20/2006 08/20/2024 Overview (09/20/2006): No, Advance Directive brochure offered , patient declined. Tobacco use disorder 015 documented as of this encounter (statuses as of 01/16/2025) Immunizations Name Administration Dates Next Due COVID-19 mRNA, LNP-s, No Pre serve, 2-Dose Series (Moderna) 10/05/2021,11/11/2020,10/14/2020 COVID-19, MRNA-LNP, PF, 30 M CG/0.3 mL, 12 YRS AND ABOVE, IM (PFIZER-Comirnat) 01/03/2024 Hepatitis B, 20+ yrs 05/06/2021,11/05/2020,09/02 Pneumococcal Conjugate Vacci ne, 20-valent ([id number]) 11/23/2022 Pneumococcal Polysaccharide PPV23 (Pneumovax) 11/02/2017 Seasonal Influenza Vac., MDV , IM, 0.5 mL (Fluzone) 08/17/2019,08/28/2018,07/17/2015,08/13,08/06/2010 Seasonal Influenza, Quadriva lent, No Preserve, IM 06/17/2022,08/17/2021,06/17/2020,07/28 TDAP (age 10 and older)(Boostrix) 09/02/2020 TDAP, Age 7 and older, IM (Adacel) 03/23/2010 documented as of this encounter Social History Tobacco Use Types Packs/Day Years Used Date Smoking Tobacco: Former Cigarettes 0.5 15 0 10/17/1998 - 10/17/2013 Smokeless Tobacco: Never Alcohol Use Standard Drinks/Week Comments Yes 1 (1 standard drink = 0.6 oz pur e alcohol) occas PHQ-2 Answer Date Recorded PHQ-2 Score -1 09/02/2020 Hunger Vital Sign Answer Date Recorded Worried About Running Out of Food in the Last Ye ar Never true 12/03/2019 Ran Out of Food in the Last Year Never true 12/03/2019 Sex and Gender Information Value Date Recorded Sex Assigned at Not on file Legal Sex Male 5:27 AM EST Gender Identity Not on file Sexual Orientation Not on file 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 Recommend adding a second BP medicine. If he tolerates it well, we can do the two medications in a combination pill on next fill. If he is amenable, I will send HCTZ to the pharmacy for him to start. * Telephone Encounter - Desirae Elaine LPN - 01/15/2025 8:53 AM EDT Pt presented for BP check BP today was 154/88 Pt states he is taking increased dosage of Irbesartan & did take it today. States this is a much better BP reading than it has been & having no issues at this time. documented in this encounter Plan of Treatment Upcoming Encounters Date Type Department Care Team (Latest Contact Info) Description 02/18/2025 6:00 PM EDT Office Visit Family [address] [place] [phone] Kimi Johnson MD [address] [place] [address] [place] [phone] 05/13/2025 8:00 AM EDT Hospital Encounter [facility] [address] [phone] Adarsh Hayes MD [address] [place] [id number] 05/13/2025 8:00 AM EDT - 05/13/2025 8:30 AM EDT Surgery [facility], [facility] [address] [place] [phone] Adarsh Hayes MD [address] [place] [address] COLONOSCOPY FLEXIBLE PROXIMAL DIAGNOSTIC Scheduled Procedures Name Priority Associated Diagnoses Date/Ti me COLONOSCOPY FLEXIBLE PROXIMAL DIAGNOSTIC Screening for colon cancer 05/13/2025 8:00 AM EDT Health Maintenance Due Date Last Done Comments Depression Screening 1986 HIV Screening 1989 Cologuard 2019 Colonoscopy 2019 Colorectal Cancer Screening 2019 Fecal Occult Blood Test 2019 Sigmoidoscopy 2019 Diabetic Eye Exam 04/05/2023 04/05/2022, 08/27/2020 Diabetic Foot Exam 11/23/2023 11/23/2022, 0 10/19/2021, 09/02/2020 Albumin/Creatinine Ratio 03/01/2024 023, 05/31/2022, 05/12/2021, Additional history exists Zoster Vaccines (1 of 2) 2024 COVID-19 Vaccine ( season) 2024 01/03/2024, 10/05/2021, 11/11/2020, Additional history exists HbA1c 06/21/2024 12/20/2023, 020 04/2023, 05/31/2022, Additional history exists GFR 12/19/2024 12/20/2023, 020 04/2023, 10/19/2021, Additional history exists Influenza Vaccine (FLU shot) (Season Ended) 2025 06/17/2022, 08/17/2021, 06/17/2020, Additional history exists Lipid Panel 12/19/2028 12/20/2023, 020 04/2023, 10/19/2021, Additional history exists DTap/Tdap Vaccines (3 - Td or Tdap) 09/02/2030 09/02/2020, 03/23/2010 Hepatitis B Vaccine Completed 05/06/2021, 11/05/2020, 09/02/2020 Pneumococcal Vaccine: 50+ Years Completed 11/23/2022, 11/02/2017 HPV (Gardasil) Vaccine Aged Out No lo nger eligible based on patient's age to complete this topic MENINGOCOCCAL (MENACTRA/MENVEO) Aged Out No longer eligible based on patient's age to complete this topic Meningitis B Vaccine (Bexsero/Trumemba) Aged Out No longer eligible based on patient's age to complete this topic documented as of this encounter Medical Devices Not on filedocumented as of this encounter Visit Diagnoses Diagnosis HTN, goal below 140/90- Primary Unspecified essential hypertension Screening for colon cancer Special screening for malignant neoplasms, colon documented in this encounter Care Teams Assistant Professor In Family Studies Relationship Specialty Start Date End Date Kimi Johnson MD [address] [place] [address] [place] [phone] PCP - General Family Medicine 01/01/25 documented as of this encounter
--- OUTSIDE RECORDS SUMMARY | 2025-02-06 08:17 | External Medical Summary | Summary of Care ---
Author Name Unknown Organization [facility] Address [address] [facility] [place] [address] Phone [phone] Care Team Providers Care Sales Product Specialist Name Role Phone Kimi Johnson MD Primary Care Pr ovider Encounter Details Date Type Department Care Team (Late st Contact Info) Description 01/15/2025 9:00 AM EDT Nurse Only Ancillary [address] [place] [address] [place], Nurse [address] [place] [address] Arrived Allergies Active Allergy Reactions Criticality Noted Date Comments Penicillins Hives High 03/21/2002 developed hives at end of amoxil documented as of this encounter (statuses as of 01/15/2025) Medications Contour Next Test In Vitro Strip (Glucose Blood)Indications :DM type 2, goal HbA1c < 7% ([facility]) Use to test your blood sugar once a day 100 Strip 3 0 Active Karen Microlet LancetsIndication s:DM type 2, goal HbA1c < 7% ([facility]) Use to test blood sugar once a day 100 Each 3 0 Active Fluticasone Propionate 50 MCG/ACT Nasal Suspension Administer 1 [place] into nostril in the morning. 16 g 4 4 Active glipiZIDE ER 5 MG Oral Tablet Extended Release 24 Hour (Glucotrol XL)Indications:DM type 2, goal HbA1c < 7% (HCC) TAKE ONE TABLET BY MOUTH BEFORE FIRST MEAL OF THE DAY 90 Tablet 3 4 Active Cyclobenzaprine HCl 10 MG Oral Tablet (Flexeril) Take 1 Tablet by mouth in the morning and 1 Tablet at noon and 1 Tablet before bedtime. 4 Active Famotidine 20 MG Oral Tablet (Pepcid)Indicatio ns:Heartburn TAKE ONE TABLET BY MOUTH TWICE DAILY 180 Tablet 1 5 Active metFORMIN HCl ER 500 MG Oral Tablet Extended Release 24 Hour (Glucophage XR)Indications:DM type 2, goal HbA1c < 7% (HCC) Take 2 Tablets by mouth in the morning and 2 Tablets before bedtime. 360 Tablet 1 5 Active guaiFENesin-Codei ne 200-10 MG/5ML Oral Liquid Take 5 mL by mouth every 8 hours as needed for Cough. 150 mL 5 Active Albuterol Sulfate HFA 108 (90 Base) MCG/ACT Inhalation Aerosol Solution Inhale 2 Puffs by mouth every 4 hours as needed for Cough, Shortness of Breath or Wheezing. 18 g 5 5 Active Irbesartan 300 MG Oral Tablet (Avapro)Indicatio ns:Primary hypertension Take 1 Tablet by mouth in the morning. 90 Tablet 3 5 Active Fluticasone-Salme terol 250-50 MCG/ACT Inhalation Aerosol Powder Breath Activated (Advair Diskus) Inhale 1 Puff by mouth in the morning and 1 Puff before bedtime. 60 Each 5 5 Active documented as of this encounter (statuses as of 01/15/2025) Active Problems Problem Noted Date Diagnosed Date CKD (chronic kidney disease), stage II 2 Overview (10/19/2021): EGFR 84 Chronic allergic rhinitis 11/02/2017 DM type 2, goal HbA1c < 7% 12/20/2016 Overview (07/08/2020): hgba1c 6.5 Mild persistent asthma without complication 08/17 Gastroesophageal reflux disease without esophagi tis 05/20/2015 Primary hypertension 08/31/2012 documented as of this encounter (statuses as of 01/15/2025) Resolved Problems Problem Noted Date Diagnosed Date [...] as of this encounter (statuses as of 01/15/2025) Immunizations Name Administration Dates Next Due COVID-19 mRNA, LNP-s, No Pre serve, 2-Dose Series (Moderna) 10/05/2021,11/11/2020,10/14/2020 COVID-19, MRNA-LNP, PF, 30 M CG/0.3 mL, 12 YRS AND ABOVE, IM (PFIZER-Comirnat) 01/03/2024 Hepatitis B, 20+ yrs 05/06/2021,11/05/2020,09/02 Pneumococcal Conjugate Vacci ne, 20-valent ([id number]) 11/23/2022 Pneumococcal Polysaccharide PPV23 (Pneumovax) 11/02/2017 Seasonal [...] on file documented as of this encounter Last Filed Vital Signs Vital Sign Reading Time Taken Comments Blood Pressure 154/88 01/15/2025 8:50 AM EDT Pulse 102 01/15/2025 8:50 AM EDT Temperature - - Respiratory Rate - - Oxygen Saturation - - Inhaled Oxygen Concentration - - Weight - - Height - - Body Mass Index - - documented in this encounter Plan of Treatment Upcoming Encounters Date Type Department Care Team (Latest Contact Info) Description 02/18/2025 6:00 PM EDT Office Visit Family Medicine [address] [place] [phone] Kimi Johnson MD [address] [place] [address] [place] [phone] 05/13/2025 8:00 AM EDT Hospital Encounter [facility] [address] [place] [phone] Adarsh Hayes MD [address] [place] [address] 05/13/2025 8:00 AM EDT - 05/13/2025 8:30 AM EDT Surgery [facility] [address] [place] [phone] Adarsh Hayes MD [address] [place] [address] COLONOSCOPY FLEXIBLE PROXIMAL DIAGNOSTIC Scheduled Procedures Name [...] Not on filedocumented as of this encounter Care Teams Sales Product Specialist Relationship Specialty Start Date End Date Kimi Johnson MD [address] [place] [address] [place] [phone] PCP - General Family Medicine 01/01/25 documented as of this encounter
--- OUTSIDE RECORDS SUMMARY | 2025-02-06 08:18 | External Medical Summary | Summary of Care ---
Author Name Unknown Organization [facility] Address [address] [facility] [place] [address] Phone [phone] Care Team Providers Care [employer] Operator Name Role Phone Unavailable Primary Care Provider Unavailabl e Reason for Visit * Reason Comments Acute Encounter Details Date Type Department Care Team (Late st Contact Info) Description 01/01/2025 9:40 AM EDT Office Visit Family Medicine [address] [phone] Kimi Johnson MD [address] [place] [address] [place] [phone] Moderate persistent asthma without complication*; Primary hypertension; Chronic allergic rhinitis; BMI 40.0-44.9, adult ([facility]) Allergies Active Allergy Reactions Criticality Noted Date Comments Penicillins Hives High 03/21/2002 developed hives at end of amoxil documented as of this encounter (statuses as of 01/01/2025) Medications Contour Next Test In Vitro Strip (Glucose Blood)Indication s:DM type 2, goal HbA1c < 7% ([facility]) Use to test your blood sugar once a day 100 Strip 3 0 Active Karen Microlet LancetsIndicatio ns:DM type 2, goal HbA1c < 7% ([facility]) Use to test blood sugar once a day 100 Each 3 0 Active Fluticasone Propionate 50 MCG/ACT Nasal Suspension Administer 1 [place] into nostril in the morning. 16 g 4 4 Active glipiZIDE ER 5 MG Oral Tablet Extended Release 24 Hour (Glucotrol XL)Indications:D M type 2, goal HbA1c < 7% (HCC) TAKE ONE TABLET BY MOUTH BEFORE FIRST MEAL OF THE DAY 90 Tablet 3 4 Active Cyclobenzaprine HCl 10 MG Oral Tablet (Flexeril) Take 1 Tablet by mouth in the morning and 1 Tablet at noon and 1 Tablet before bedtime. 4 Active Famotidine 20 MG Oral Tablet (Pepcid)Indicati ons:Heartburn TAKE ONE TABLET BY MOUTH TWICE DAILY 180 Tablet 1 5 Active metFORMIN HCl ER 500 MG Oral Tablet Extended Release 24 Hour (Glucophage XR)Indications:D M type 2, goal HbA1c < 7% (HCC) Take 2 Tablets by mouth in the morning and 2 Tablets before bedtime. 360 Tablet 1 5 Active guaiFENesin-Code ine 200-10 MG/5ML Oral Liquid Take 5 mL by mouth every 8 hours as needed for Cough. 150 mL 5 Active Albuterol Sulfate HFA 108 (90 Base) MCG/ACT Inhalation Aerosol Solution Inhale 2 Puffs by mouth every 4 hours as needed for Cough, Shortness of Breath or Wheezing. 18 g 5 5 Active Irbesartan 300 MG Oral Tablet (Avapro)Indicati ons:Primary hypertension Take 1 Tablet by mouth in the morning. 90 Tablet 3 5 Active Fluticasone Propionate Diskus 50 MCG/ACT Inhalation Aerosol Powder Breath Activated Inhale 2 Puffs by mouth in the morning and 2 Puffs before bedtime. 1 Each 3 5 Active predniSONE 20 MG Oral Tablet (Deltasone) Take 2 Tablets by mouth in the morning for 5 days. 10 Tablet 5 025 Active Irbesartan 150 MG Oral Tablet (Avapro)Indicati ons:Primary hypertension TAKE ONE TABLET BY MOUTH AT BEDTIME 90 Tablet 3 4 025 Discontin ued(Refil l) documented as of this encounter (statuses as of 01/01/2025) Active Problems Problem Noted Date Diagnosed Date CKD (chronic kidney disease), stage II 2 Overview (10/19/2021): EGFR 84 Chronic allergic rhinitis 11/02/2017 DM type 2, goal HbA1c < 7% 12/20/2016 Overview (07/08/2020): hgba1c 6.5 Mild persistent asthma without complication 08/17 Gastroesophageal reflux disease without esophagi tis 05/20/2015 Primary hypertension 08/31/2012 documented as of this encounter (statuses as of 01/01/2025) Resolved Problems Problem Noted Date Diagnosed Date [...] as of this encounter (statuses as of 01/01/2025) Immunizations Name Administration Dates Next Due COVID-19 mRNA, LNP-s, No Pre serve, 2-Dose Series (Moderna) 10/05/2021,11/11/2020,10/14/2020 COVID-19, MRNA-LNP, PF, 30 M CG/0.3 mL, 12 YRS AND ABOVE, IM (PFIZER-Comirnaty) 01/03/2024 Hepatitis B, 20+ yrs 05/06/2021,11/05/2020,09/02 Pneumococcal Conjugate Vacci ne, 20-valent ([id number]) 11/23/2022 Pneumococcal Polysaccharide PPV23 (Pneumovax) 11/02/2017 Seasonal [...] Sign Reading Time Taken Comments Blood Pressure 170/90 01/01/2025 9:21 AM EDT Pulse 98 01/01/2025 9:21 AM EDT Temperature 35.9 °C (96.6 °F) 01/01/2025 9:21 AM ED T Respiratory Rate - - Oxygen Saturation 99% 01/01/2025 9:21 AM EDT Inhaled Oxygen Concentration - - Weight 125.9 kg (277 lb 8 oz) 01/01/2025 9:21 AM EDT Height 175.3 cm (5' 9") 01/01/2025 9:21 AM EDT Body Mass Index 40.98 01/01/2025 9:21 AM EDT documented in this encounter Progress Notes * Kimi Johnson MD - 01/01/2025 9:23 AM EDT Images from the original note were not included. History of Present Illness Jonel Lamb is a 49 year old male that presents for Acute History of Present Illness The patient, with a history of asthma, presents with a persistent cough that has been unresponsive to previous treatments including albuterol inhaler, cough syrup, and two courses of antibiotics (amoxicillin and doxycycline). The cough has been severe enough to cause lightheadedness and rib pain. The patient reports needing to use his albuterol inhaler multiple times a day and take breathing treatments in the morning and at night. The cough has not been accompanied by other symptoms of illness such as fever or nausea. The patient's job prevents him from taking the cough syrup during the day due to its sedative effects. The patient also has a history of high blood pressure, which has been slightly elevated recently. Physical Exam BP 170/90 | Pulse 98 | Temp 96.6 °F (35.9 °C) (Infrared ) | Ht 5' 9" (1.753 m) | Wt 277 lb 8 oz (125.9 kg) | SpO2 99% | BMI 40.98 kg/m² | BSA 2.48 m² Physical Exam Vitals and nursing note reviewed. Constitutional: General: He is not in acute distress. HENT: Head: Normocephalic and atraumatic. Mouth/Throat: Mouth: Mucous membranes are moist. Eyes: Extraocular Movements: Extraocular movements intact. Neck: Thyroid: No thyromegaly. Cardiovascular: Rate and Rhythm: Normal rate and regular rhythm. Pulmonary: Breath sounds: Normal breath sounds. No wheezing or rhonchi. Comments: Coarse cough Musculoskeletal: General: Normal range of motion. Cervical back: Normal range of motion and neck supple. Skin: General: Skin is warm and dry. Findings: No lesion or rash. Neurological: General: No focal deficit present. Mental Status: He is alert and oriented to person, place, and time. Psychiatric: Mood and Affect: Mood normal. Behavior: Behavior normal. Assessment and Plan Assessment & Plan Post-infectious cough He experiences a persistent cough post-infection, causing discomfort, lightheadedness, and rib pain. Previous treatments have been ineffective, and the cough is exacerbated by lung hypersensitivity. Asthma treatment escalation is necessary. Prescribe Flovent inhaler, 2 puffs in the morning and 2 puffs at bedtime. Continue albuterol as needed. Prescribe a short course of prednisone. Consider referral to a surgical training specialist if symptoms persist. Moderate persistent asthma without complication His asthma symptoms have worsened, with increased albuterol use and noted chest tightness. Flovent is prescribed to reduce hypersensitivity and reliance on albuterol. Prescribe Flovent inhaler, 2 puffs in the morning and 2 puffs at bedtime. Continue albuterol as needed. Consider stepping up asthma treatment if symptoms do not improve. Hypertension He has consistently high blood pressure with inconsistent adherence to irbesartan. The cough may elevate blood pressure. Increase irbesartan dosage to 300 mg daily. Advise taking two tablets of the current irbesartan dose until the new prescription is filled. Monitor blood pressure regularly. Schedule a nurse visit in two weeks to reassess blood pressure and symptoms. Moderate persistent asthma without complication Primary hypertension - Irbesartan 300 MG Oral Tablet (Avapro); Take 1 Tablet by mouth in the morning. Chronic allergic rhinitis BMI 40.0-44.9, adult (HCC) Encouraged healthy lifestyle Wrap-Up Follow Up: Return in about 2 weeks (around 01/15/2025) for Nurse Clinic Visit. | For: Nurse Clinic Visit Time: I spent a total of 20-29 minutes (exact time 22 mins) on the date of service in preparation, delivery, and documentation of the care provided to Jonel Lamb excluding any time spent in the performance of separately billed services. Text in this note was generated using an ambient documentation service. I discussed the use of a device to record and summarize our discussion today. All persons present during the encounter consented to its use. documented in this encounter Nursing Notes * Kirstie Kaba CMA - 01/01/2025 9:22 AM EDT Sick Still having cough was giving cough syurp for it. Still has cough and wheezing still need to to 1-2nebs a day and using inhaler multiple times a day. Reports cough syrup helped some but could only take at night due to his job. Reports has rib pain now, and can have coughing fits that cause him to have a headache documented in this encounter Plan of Treatment Upcoming Encounters Date Type Department Care Team (Latest Contact Info) Description 01/15/2025 9:00 AM EDT Nurse Only Ancillary [address] [place] [phone] [place], Nurse [facility] [address] [place] [address] [place] [phone] 02/18/2025 6:00 PM EDT Office Visit Family Medicine [address] [place] [phone] Kimi Johnson MD [address] [place] [address] [place] [phone] 05/13/2025 8:00 AM EDT Hospital Encounter ENDO [facility], Endoscopy Room [facility] [address] [place] [phone] Adarsh Hayes MD [address] [place] [id number] 05/13/2025 8:00 AM EDT - 05/13/2025 8:30 AM EDT Surgery ENDO [facility], Endoscopy Room [facility] [place] [phone] Adarsh Hayes MD [address] [place] [phone] COLONOSCOPY FLEXIBLE PROXIMAL DIAGNOSTIC Scheduled Procedures Name Priority Associated Diagnoses Date/Ti me COLONOSCOPY FLEXIBLE PROXIMAL DIAGNOSTIC Screening for colon cancer 05/13/2025 8:00 AM EDT Health Maintenance Due Date Last Done Comments HIV Screening 1989 Cologuard 2019 Colonoscopy 2019 Colorectal Cancer Screening 2019 Fecal Occult Blood Test 2019 Sigmoidoscopy 2019 Depression Screening 09/02/2021 09/02/2020 Diabetic Eye Exam 04/05/2023 04/05/2022, 08/27/2020 Diabetic Foot Exam 11/23/2023 11/23/2022, 0 10/19/2021, 09/02/2020 Albumin/Creatinine Ratio 03/01/2024 052 023, 05/31/2022, 05/12/2021, Additional history exists Zoster Vaccines (1 of 2) 2024 COVID-19 Vaccine ( season) 2024 01/03/2024, 10/05/2021, 11/11/2020, Additional history exists Influenza Vaccine (FLU shot) (#1) 2024 06/17/2022, 08/17/2021, 06/17/2020, Additional history exists HbA1c 06/21/2024 12/20/2023, 02/0 04/2023, 05/31/2022, Additional history exists GFR 12/19/2024 12/20/2023, 02/0 04/2023, 10/19/2021, Additional history exists Lipid Panel 12/19/2028 12/20/2023, 02/0 04/2023, 10/19/2021, Additional history exists DTap/Tdap Vaccines [...] as of this encounter Visit Diagnoses Diagnosis Moderate persistent asthma without complication- Primary Unspecified asthma Primary hypertension Unspecified essential hypertension Chronic allergic rhinitis Allergic rhinitis, cause unspecified BMI 40.0-44.9, adult (HCC) Body Mass Index 40.0-44.9, adult Screening for colon cancer Special screening for malignant neoplasms, colon documented in this encounter
--- OUTSIDE RECORDS SUMMARY | 2025-02-06 08:18 | External Medical Summary | Summary of Care ---
Author Name Unknown Organization [facility] Address [address] [place] [address] Phone [phone] Care Team Providers Care Technology Coordinator Name Role Phone Unavailable Primary Care Provider Unavailabl e Reason for Visit * Reason Onset Date Comments Lost Previous Prescription 10/29/2024 Encounter Details Date Type Department Care Team (Late st Contact Info) Description 10/29/2024 Telephone Gastroenterology, [facility] [address] [place], [place] [phone] Services, Scheduling [address] [place] [address] Lost Previous Prescription Allergies Active Allergy Reactions Criticality Noted Date Comments Penicillins Hives High 03/21/2002 developed hives at end of amoxil documented as of this encounter (statuses as of 10/30/2024) Medications Contour Next Test In Vitro Strip (Glucose Blood)Indications :DM type 2, goal HbA1c < 7% ([facility]) Use to test your blood sugar once a day 100 Strip 3 0 Active Karen Microlet LancetsIndication s:DM type 2, goal HbA1c < 7% ([facility]) Use to test blood sugar once a day 100 Each 3 0 Active Albuterol Sulfate HFA 108 (90 Base) MCG/ACT Inhalation Aerosol SolutionIndicatio ns:Mild persistent asthma with acute exacerbation Inhale by mouth 2 Puffs every 4 hours as needed for Cough, Shortness of Breath or Wheezing. 18 g 5 2 Active Famotidine 20 MG Oral Tablet (Pepcid AC Maximum Strength)Indicati ons:Heartburn one pill twice a day as needed for heartburn 60 Tablet 5 3 Active Fluticasone Propionate 50 MCG/ACT Nasal Suspension Administer 1 [place] into nostril in the morning. 16 g 4 4 Active glipiZIDE ER 5 MG Oral Tablet Extended Release 24 Hour (Glucotrol XL)Indications:DM type 2, goal HbA1c < 7% (HCC) TAKE ONE TABLET BY MOUTH BEFORE FIRST MEAL OF THE DAY 90 Tablet 3 4 Active Irbesartan 150 MG Oral Tablet (Avapro)Indicatio ns:Primary hypertension TAKE ONE TABLET BY MOUTH AT BEDTIME 90 Tablet 3 4 Active metFORMIN HCl ER 500 MG Oral Tablet Extended Release 24 Hour (Glucophage XR)Indications:DM type 2, goal HbA1c < 7% (HCC) Take 2 Tablets by mouth in the morning and 2 Tablets before bedtime. 360 Tablet 1 4 Active Cyclobenzaprine HCl 10 MG Oral Tablet (Flexeril) Take 1 Tablet by mouth in the morning and 1 Tablet at noon and 1 Tablet before bedtime. 4 Active predniSONE 20 MG Oral Tablet (Deltasone)Indica tions:Dry cough 2 tablets daily for 5 days then 1 tablet daily 15 Tablet 4 Active documented as of this encounter (statuses as of 10/30/2024) Active Problems Problem Noted Date Diagnosed Date CKD (chronic kidney disease), stage II 2 Overview (10/19/2021): EGFR 84 Morbid obesity with BMI of 40.0-44.9, adult 04/17 Overview (05/12/2021): 290 Chronic allergic rhinitis 11/02/2017 DM type 2, goal HbA1c < 7% 12/20/2016 Overview (07/08/2020): hgba1c 6.5 Mild persistent asthma without complication 08/17 Gastroesophageal reflux disease without esophagi tis 05/20/2015 Primary hypertension 08/31/2012 documented as of this encounter (statuses as of 10/30/2024) Resolved Problems Problem Noted Date Diagnosed Date Resolved Date Body mass index (BMI) of 40. 0 [...] as of this encounter (statuses as of 10/30/2024) Immunizations Name Administration Dates Next Due COVID-19 mRNA, LNP-s, No Pre serve, 2-Dose Series (Moderna) 10/05/2021,11/11/2020,10/14/2020 COVID-19, MRNA-LNP, PF, 30 M CG/0.3 mL, 12 YRS AND ABOVE, IM (PFIZER-Comirnaty) 01/03/2024 Hepatitis B, 20+ yrs 05/06/2021,11/05/2020,09/02 Pneumococcal Conjugate Vacci ne, 20-valent ([id number]) 11/23/2022 Pneumococcal Polysaccharide PPV23 (Pneumovax) 11/02/2017 Seasonal [...] encounter Miscellaneous Notes * Telephone Encounter - Caterina Mijares OSA - 10/29/2024 3:54 PM EST Patient would like a call to RS procedure appointment Please assist documented in this encounter Plan of Treatment Upcoming Encounters Date Type Department Care Team (Latest Contact Info) Description 11/12/2024 9:30 AM EST Hospital Encounter ENDO [facility], Endoscopy Room [facility] [address] [place] [phone] Adarsh Hayes MD [address] [place] [phone] 11/12/2024 9:30 AM EST - 11/12/2024 10:00 AM EST Surgery ENDO [facility], Endoscopy Room [facility] [address] [place] [phone] Adarsh Hayes MD [address] [place] [phone] COLONOSCOPY FLEXIBLE PROXIMAL DIAGNOSTIC Scheduled Procedures Name Priority Associated Diagnoses Date/Ti me COLONOSCOPY FLEXIBLE PROXIMAL DIAGNOSTIC Screening for colon cancer 11/12/2024 9:30 AM EST Health Maintenance Due Date Last Done Comments HIV Screening 1989 Cologuard 2019 Colonoscopy 2019 Colorectal Cancer Screening 2019 Fecal Occult Blood Test 2019 Sigmoidoscopy 2019 Depression Screening 09/02/2021 09/02/2020 Diabetic Eye Exam 04/05/2023 04/05/2022, 08/27/2020 Diabetic Foot Exam 11/23/2023 11/23/2022, 0 10/19/2021, 09/02/2020 Albumin/Creatinine Ratio 03/01/20242 023, 05/31/2022, 05/12/2021, Additional history exists Zoster [...]
--- OUTSIDE RECORDS SUMMARY | 2025-02-06 08:18 | External Medical Summary | Summary of Care ---
Author Name Unknown Organization [facility] Address [address] [place] [address] Phone [phone] Care Team Providers Care Transcribing Machine Operator Name Role Phone Zeny Montes PA-C Primary Care Provider [phone] Reason for Visit * Reason Onset Date Comments Med Request 05/21/2024 Encounter Details Date Type Department Care Team ([facility] st Contact Info) Description 05/21/2024 Telephone Family Medicine [address] [phone] Zeny Montes PA-C [address] [place] [address] [place] [id number] Med Request Allergies Active Allergy Reactions Criticality Noted Date Comments Penicillins Hives High 03/21/2002 developed hives at end of amoxil documented as of this encounter (statuses as of 08/20/2024) Medications Medication Sig Dispensed Refills Start Date End Date Status Contour Next Test In Vitro Strip (Glucose Blood)Indications:D M type 2, goal HbA1c < 7% ([facility]) Use to test your blood sugar once a day 100 Strip 3 09/10/2020 Active Karen Microlet LancetsIndications: DM type 2, goal HbA1c < 7% ([facility]) Use to test blood sugar once a day 100 Each 3 09/10/2020 Active Albuterol Sulfate HFA 108 (90 Base) MCG/ACT Inhalation Aerosol SolutionIndications :Mild persistent asthma with acute exacerbation Inhale by mouth 2 Puffs every 4 hours as needed for Cough, Shortness of Breath or Wheezing. 18 g 5 03/09/2022 Active Famotidine 20 MG Oral Tablet (Pepcid AC Maximum Strength)Indication s:Heartburn one pill twice a day as needed for heartburn 60 Tablet 5 09/12/2023 Active Fluticasone Propionate 50 MCG/ACT Nasal Suspension Administer 1 [place] into nostril in the morning. 16 g 4 01/03/2024 Active glipiZIDE ER 5 MG Oral Tablet Extended Release 24 Hour (Glucotrol XL)Indications:DM type 2, goal HbA1c < 7% (HCC) TAKE ONE TABLET BY MOUTH BEFORE FIRST MEAL OF THE DAY 90 Tablet 3 01/24/2024 Active Irbesartan 150 MG Oral Tablet (Avapro)Indications :Primary hypertension TAKE ONE TABLET BY MOUTH AT BEDTIME 90 Tablet 3 01/24/2024 Active metFORMIN HCl ER 500 MG Oral Tablet Extended Release 24 Hour (Glucophage XR)Indications:DM type 2, goal HbA1c < 7% (HCC) Take 2 Tablets by mouth in the morning and 2 Tablets before bedtime. 360 Tablet 1 03/05/2024 Active Cyclobenzaprine HCl 10 MG Oral Tablet (Flexeril) Take 1 Tablet by mouth in the morning and 1 Tablet at noon and 1 Tablet before bedtime. 03/03/2024 Active Benzonatate 100 MG Oral CapsuleIndications: Person under investigation for COVID-19,Bronchitis , complicated Take 1 Capsule by mouth 3 times a day as needed for Cough. 30 Capsule 3 05/21/2024 4 Discontinue d(Patient preference/ discontinua tion) Azithromycin 250 MG Oral Tablet (Zithromax)Indicati ons:Person under investigation for COVID-19,Bronchitis , complicated Take 2 tabs by mouth on the first day, then 1 tab daily on days two through five 6 Tablet 05/21/2024 4 Discontinue d(Patient preference/ discontinua tion) predniSONE 20 MG Oral Tablet (Deltasone)Indicati ons:Bronchitis, complicated Take 1 Tablet by mouth in the morning for 5 days. 5 Tablet 05/21/2024 4 Discontinue d(Patient preference/ discontinua tion) documented as of this encounter (statuses as of 08/20/2024) Active Problems Problem Noted Date Diagnosed Date CKD (chronic kidney disease), stage II 2 Overview: EGFR 84 Morbid obesity with BMI of 40.0-44.9, adult 04/17 Overview: 290 Chronic allergic rhinitis 11/02/2017 DM type 2, goal HbA1c < 7% 12/20/2016 Overview: hgba1c 6.5 Mild persistent asthma without complication 08/17 Gastroesophageal reflux disease without esophagi tis 05/20/2015 Primary hypertension 08/31/2012 documented as of this encounter (statuses as of 08/20/2024) Resolved Problems Problem Noted Date Diagnosed Date Resolved Date Body mass index (BMI) of 40. 0 to 44.9 in adult 07/24/2018 06/02/2021 Overview: Per Obesity protocol #1 Allergic rhinitis 12/20/2016 10/19/2021 Asthma exacerbation 08/26/2015 08/26/20 15 Prediabetes 07/15/2015 07/08/2020 BMI 45.0-49.9, adult 05/20/2015 018 Overview: Per Obesity protocol #1 ADVANCE DIRECTIVE INFORMATION 09/20/2006 08/20/2024 Overview: No, Advance Directive brochure offered , patient declined. Tobacco use disorder 015 documented as of this encounter (statuses as of 08/20/2024) Immunizations Name Administration Dates Next Due COVID-19 mRNA, LNP-s, No Pre serve, 2-Dose Series (Moderna) 10/05/2021,11/11/2020,10/14/2020 COVID-19, MRNA-LNP, PF, 30 M CG/0.3 mL, 12 YRS AND ABOVE, IM (PFIZER-Comirnaty) 01/03/2024 Hepatitis B, 20+ yrs 05/06/2021,11/05/2020,09/02 Pneumococcal Conjugate Vacci ne, 20-valent ([id number]) 11/23/2022 Pneumococcal Polysaccharide PPV23 (Pneumovax) 11/02/2017 Seasonal [...] Recorded Sex Assigned at Not on file Gender Identity Not on file Sexual Orientation Not on file Job Start Date Occupation Industry Not on file Not on file Not on file documented as of this encounter Miscellaneous Notes * Telephone Encounter - Jacquelyn Davila RN - 05/23/2024 1:51 PM EDT Pt was seen by Olaf Ingram * Telephone Encounter - Jaycee Ingram LPN - 05/23/2024 9:57 AM EDT Pt calling states he tested positive for covid on Tuesday evening, was prescribed abx, wondering if he should be taking paxlovid. Pt states right now he has a little bit of a stuffy nose, symptoms started on Tuesday. Pt states he was prescribed an a zpak and benzonatate on Tuesday when he saw Dr. Ingram. He was asking if he should continue the antibiotic, I let him know that since he's already been taking it for 3 days he should probably finish it but I will send a message to Dr. Ingram's office andthey will call him if he should be doing anything different. * Telephone Encounter - She Trejo OSA - 05/22/2024 1:06 PM EDT Patient calling in to check on the status of previous message. Patient Called within 48 hour timeframe. Reminded patient of 48 hour turn-around time. * Telephone Encounter - Barbara Boudreaux OSA - 05/22/2024 9:08 AM EDT Patient calling in to check on the status of previous message. Patient Called within 48 hour timeframe. Reminded patient of 48 hour turn-around time. Uses [facility] * Telephone Encounter - She Trejo OSA - 05/21/2024 4:38 PM EDT Pt tested positive for covid and wondering if there's any other medications he should be prescribedor if he should just continue with the antibiotics. documented in this encounter Plan of Treatment Upcoming Encounters Date Type Department Care Team (Latest Contact Info) Description 11/12/2024 9:30 AM EST Hospital Encounter ENDO [facility], Endoscopy Room [facility] [address] [place] [phone] Adarsh Hayes MD [address] [place] [phone] 11/12/2024 9:30 AM EST - 11/12/2024 10:00 AM EST Surgery ENDO [facility], Endoscopy Room [facility] [address] [place] [phone] Adarsh Hayes MD [address] [place] [address] COLONOSCOPY FLEXIBLE PROXIMAL DIAGNOSTIC Scheduled Procedures Name [...] Vaccine Completed 05/06/2021, 11/05/2020, 09/02/2020 Pneumococcal Vaccine: Pediatrics (0 to 5 Years) and At-Risk Patients (6 to 64 Years) Completed 11/23/2022, 11/02/2017 HPV (Gardasil) Vaccine Aged Out No lo nger eligible based on patient's age to complete this topic MENINGOCOCCAL (MENACTRA/MENVEO) Aged Out No longer eligible based on patient's age to complete this topic documented as of this encounter Medical Devices Not on filedocumented as of this encounter Additional Health Concerns Infection Onset Date Last Indicated Resolved Time COVID-19 (confirmed) 05/21/2024 05/21/2024 024 12:21 AM EDT documented as of this encounter Care Teams Transcribing Machine Operator Relationship Specialty Start Date End Date Zeny Montes PA-C [address] [place] [address] [place] [address] PCP - General Physician Consumer Affairs Specialist 06/19/24 documented as of this encounter
--- OUTSIDE RECORDS SUMMARY | 2025-02-06 08:18 | External Medical Summary | Summary of Care ---
Author Name Unknown Organization [facility] Address [address] [place] [address] Phone [phone] Care Team Providers Care Billing Coordinator Name Role Phone Unavailable Primary Care Provider Unavailabl e Encounter Details Date Type Department Care Team (Late st Contact Info) Description 11/05/2024 Population Health External Data Unspecified Department Allergies Active Allergy Reactions Criticality Noted Date Comments Penicillins Hives High 03/21/2002 developed hives at end of amoxil documented as of this encounter (statuses as of 11/05/2024) Medications Contour Next Test In Vitro Strip (Glucose Blood)Indications :DM type 2, goal HbA1c < 7% (HCC) Use to test your blood sugar once a day 100 Strip 3 0 Active Karen Microlet LancetsIndication s:DM type 2, goal HbA1c < 7% (HCC) Use to test blood sugar once a [...] Propionate 50 MCG/ACT Nasal Suspension Administer 1 [place] into nostril in the morning. 16 g [...] as of this encounter (statuses as of 11/05/2024) Active Problems Problem Noted Date Diagnosed Date [...] as of this encounter (statuses as of 11/05/2024) Resolved Problems Problem Noted Date Diagnosed Date [...] as of this encounter (statuses as of 11/05/2024) Immunizations Name Administration Dates Next Due COVID-19 mRNA, LNP-s, No Pre serve, 2-Dose Series (Moderna) 10/05/2021,11/11/2020,10/14/2020 COVID-19, MRNA-LNP, PF, 30 M CG/0.3 mL, 12 YRS AND ABOVE, IM (PFIZER-Comirnaty) 01/03/2024 Hepatitis B, 20+ yrs 05/06/2021,11/05/2020,09/02 Pneumococcal Conjugate Vacci ne, 20-valent ([id number]) 11/23/2022 Pneumococcal Polysaccharide PPV23 (Pneumovax) 11/02/2017 Seasonal [...] on file documented as of this encounter Plan of Treatment Upcoming Encounters Date Type Department Care Team (Latest Contact Info) Description 05/13/2025 8:00 AM EDT Hospital Encounter [facility], Endoscopy Room [facility] [address] [place] [phone] Adarsh Hayes MD [address] [place] [address] 05/13/2025 8:00 AM EDT - 05/13/2025 8:30 AM EDT Surgery [facility]O [facility], Endoscopy Room [facility] [address] [place] [phone] Adarsh Hayes MD [address] [place] [address] COLONOSCOPY FLEXIBLE PROXIMAL DIAGNOSTIC Scheduled Procedures Name [...] 06/17/2020, Additional history exists HbA1c 06/21/2024 12/20/2023, 0 04/2023, 05/31/2022, Additional history exists GFR 12/19/2024 12/20/2023, 0 04/2023, 10/19/2021, Additional history exists Lipid Panel 12/19/2028 12/20/2023, 0 04/2023, 10/19/2021, Additional history exists DTap/Tdap Vaccines [...]
--- OUTSIDE RECORDS SUMMARY | 2025-02-06 08:18 | External Medical Summary | Summary of Care ---
Author Name Unknown Organization [facility] Address [address] [place] [address] Phone [phone] Care Team Providers Care Contract Assistant Name Role Phone Unavailable Primary Care Provider Unavailabl e Reason for Visit * Reason Onset Date Comments Lost Previous Prescription 10/29/2024 Encounter Details Date Type Department Care Team (Late st Contact Info) Description 10/29/2024 Telephone Gastroenterology, [facility] [address] [place], [place] [id number] Services, Scheduling [address] [place] [address] Lost Previous Prescription Allergies Active Allergy Reactions Criticality Noted Date Comments Penicillins Hives High 03/21/2002 developed hives at end of amoxil documented as of this encounter (statuses as of 10/30/2024) Medications Contour Next Test In Vitro Strip (Glucose Blood)Indications :DM type 2, goal HbA1c < 7% ([facility]) Use to test your blood sugar once a day 100 Strip 3 0 Active Karen Microlet LancetsIndication s:DM type 2, goal HbA1c < 7% ([facility]) Use to test blood sugar once a [...] Propionate 50 MCG/ACT Nasal Suspension Administer 1 [place] into nostril in the morning. 16 g [...] yrs 05/06/2021,11/05/2020,09/02 Pneumococcal Conjugate Vacci ne, 20-valent ([id number]) 11/23/2022 Pneumococcal Polysaccharide PPV23 (Pneumovax) 11/02/2017 Seasonal [...] encounter Miscellaneous Notes * Telephone Encounter - Mercy Shultz OSA - 10/30/2024 10:00 AM EST Pt reschedule for 05/13 with g * Telephone Encounter - Caterina Mijares OSA - 10/29/2024 3:54 PM EST Patient would like a call to RS procedure appointment Please assist documented in this encounter Plan of Treatment Upcoming Encounters Date Type Department Care Team (Latest Contact Info) Description 05/13/2025 8:00 AM EDT Hospital Encounter [facility]O [facility], Endoscopy Room [facility] [address] [phone] Adarsh Hayes MD [address] [place] [address] 05/13/2025 8:00 AM EDT - 05/13/2025 8:30 AM EDT Surgery ENDO [facility], Endoscopy Room [facility] [address] [place] [phone] Adarsh Hayes MD [address] [place] [id number] COLONOSCOPY FLEXIBLE PROXIMAL DIAGNOSTIC Scheduled Procedures Name [...]
--- OUTSIDE RECORDS SUMMARY | 2025-02-06 08:18 | External Medical Summary | Summary of Care ---
Author Name Unknown Organization [facility] Address [address] [place] [address] Phone [phone] Care Team Providers Care Aircraft Load Controller Name Role Phone Unavailable Primary Care Provider Unavailabl e Reason for Visit * Reason Comments Acute Encounter Details Date Type Department Care Team (Late st Contact Info) Description 11/16/2024 11:00 AM EST Office Visit Family Medicine [address] [phone] Zeny Montes PA-C [address] [place] [address] [place] [address] Bronchitis, complicated* Allergies Active Allergy Reactions Criticality Noted Date Comments Penicillins Hives High 03/21/2002 developed hives at end of amoxil documented as of this encounter (statuses as of 11/16/2024) Medications Contour Next Test In Vitro Strip (Glucose Blood)Indication s:DM type 2, goal HbA1c < 7% ([facility]) Use to test your blood sugar once a day 100 Strip 3 09/10/20 20 Active Karen Microlet LancetsIndicatio ns:DM type 2, goal HbA1c < 7% ([facility]) Use to test blood sugar once a day 100 Each 3 09/10/20 20 Active Albuterol Sulfate HFA 108 (90 Base) MCG/ACT Inhalation Aerosol SolutionIndicati ons:Mild persistent asthma with acute exacerbation Inhale by mouth 2 Puffs every 4 hours as needed for Cough, Shortness of Breath or Wheezing. 18 g 5 03/09/20 22 Active Famotidine 20 MG Oral Tablet (Pepcid AC Maximum Strength)Indicat ions:Heartburn one pill twice a day as needed for heartburn 60 Tablet 5 09/12/20 23 Active Fluticasone Propionate 50 MCG/ACT Nasal Suspension Administer 1 [place] into nostril in the morning. 16 g 4 01/03/20 24 Active glipiZIDE ER 5 MG Oral Tablet Extended Release 24 Hour (Glucotrol XL)Indications:D M type 2, goal HbA1c < 7% ([facility]) TAKE ONE TABLET BY MOUTH BEFORE FIRST MEAL OF THE DAY 90 Tablet 3 01/24/20 24 Active Irbesartan 150 MG Oral Tablet (Avapro)Indicati ons:Primary hypertension TAKE ONE TABLET BY MOUTH AT BEDTIME 90 Tablet 3 01/24/20 24 Active metFORMIN HCl ER 500 MG Oral Tablet Extended Release 24 Hour (Glucophage XR)Indications:D M type 2, goal HbA1c < 7% (HCC) Take 2 Tablets by mouth in the morning and 2 Tablets before bedtime. 360 Tablet 1 03/05/20 24 Active Cyclobenzaprine HCl 10 MG Oral Tablet (Flexeril) Take 1 Tablet by mouth in the morning and 1 Tablet at noon and 1 Tablet before bedtime. 03/03/20 24 Active Doxycycline Hyclate 100 MG Oral CapsuleIndicatio ns:Bronchitis, complicated Take 1 Capsule by mouth in the morning and 1 Capsule before bedtime. Do all this for 10 days. Until gone.. 20 Capsule 11/16/19 25 025 Active Benzonatate 100 MG Oral CapsuleIndicatio ns:Bronchitis, complicated Take 1 Capsule by mouth 3 times a day as needed for Cough. 30 Capsule 1 11/16/19 25 Active predniSONE 20 MG Oral Tablet (Deltasone)Indic ations:Dry cough 2 tablets daily for 5 days then 1 tablet daily 15 Tablet 06/19/20 24 025 Discontinued documented as of this encounter (statuses as of 11/16/2024) Active Problems Problem Noted Date Diagnosed Date [...] as of this encounter (statuses as of 11/16/2024) Resolved Problems Problem Noted Date Diagnosed Date [...] as of this encounter (statuses as of 11/16/2024) Immunizations Name Administration Dates Next Due COVID-19 mRNA, LNP-s, No Pre serve, 2-Dose Series (Moderna) 10/05/2021,11/11/2020,10/14/2020 COVID-19, MRNA-LNP, PF, 30 M CG/0.3 mL, 12 YRS AND ABOVE, IM (PFIZER-Comirnaty) 01/03/2024 Hepatitis B, 20+ yrs 05/06/2021,11/05/2020,09/02 Pneumococcal Conjugate Vacci ne, 20-valent ([id number]) 11/23/2022 Pneumococcal Polysaccharide PPV23 (Pneumovax) 11/02/2017 Seasonal [...] Sign Reading Time Taken Comments Blood Pressure 180/94 11/16/2024 10:52 AM EST Pulse 100 11/16/2024 10:52 AM EST Temperature 37.2 °C (99 °F) 11/16/2024 10:52 AM EST Respiratory Rate 96 11/16/2024 10:52 AM EST Oxygen Saturation - - Inhaled Oxygen Concentration - - Weight 127 kg (280 lb) 11/16/2024 10:52 AM EST Height 175.3 cm (5' 9") 11/16/2024 10:52 AM EST Body Mass Index 41.35 11/16/2024 10:52 AM EST documented in this encounter Progress Notes * Zeny Montes PA-C - 11/16/2024 10:56 AM EST Nursing Notes: Desirae Elaine LPN 11/16/24 1054 Sign at exiting of workspace Sinus infection? Last week congestion, runny nose Got worse through the week Headache/ pressure Tuesday started coughing & dry throat Severe sore throat Horrible cough since then. Pt here today with sinus pain/pressure, nasal/head congestion, colored nasal drainage, cough, chestcongestion for the past week. Pt denies fever, chills, nausea, vomiting, diarrhea, chest pain. Pt has had mild SOB. Pt has sore throat. Review of patient's allergies indicates: Allergen Reactions Penicillins Hives developed hives at end of amoxil Current Outpatient Medications Medication Sig Dispense Refill Contour Next Test In Vitro Strip (Glucose Blood) Use to test your blood sugar once a day 100 Strip 3 Karen Microlet Lancets Use to test blood sugar once a day 100 Each 3 Albuterol Sulfate HFA 108 (90 Base) MCG/ACT Inhalation Aerosol Solution Inhale by mouth 2 Puffs every 4 hours as needed for Cough, Shortness of Breath or Wheezing. 18 g 5 Famotidine 20 MG Oral Tablet (Pepcid AC Maximum Strength) one pill twice a day as needed for heartburn 60 Tablet 5 Fluticasone Propionate 50 MCG/ACT Nasal Suspension Administer 1 [place] into nostril in the morning. 16 g 4 glipiZIDE ER 5 MG Oral Tablet Extended Release 24 Hour (Glucotrol XL) TAKE ONE TABLET BY MOUTH BEFORE FIRST MEAL OF THE DAY 90 Tablet 3 Irbesartan 150 MG Oral Tablet (Avapro) TAKE ONE TABLET BY MOUTH AT BEDTIME 90 Tablet 3 metFORMIN HCl ER 500 MG Oral Tablet Extended Release 24 Hour (Glucophage XR) Take 2 Tablets by mouth in the morning and 2 Tablets before bedtime. 360 Tablet 1 Cyclobenzaprine HCl 10 MG Oral Tablet (Flexeril) Take 1 Tablet by mouth in the morning and 1 Tabletat noon and 1 Tablet before bedtime. No current facility-administered medications for this visit. Past Medical History: Diagnosis Date Allergic rhinitis 12/20/2016 Allergic rhinitis due to other allergen Asthma, mild persistent 08/26/2015 CKD (chronic kidney disease), stage II 10/19/2021 EGFR 84 COVID-19 05/20/2022 [facility] ER DM type 2, goal HbA1c < 7% ([facility]) 12/20/2016 hgba1c 6.5 Encounter for hepatitis C screening test for low risk patient 05/12/2021 negative Gastroesophageal reflux disease without esophagitis 05/20/2015 History of tobacco use Morbid obesity with BMI of 40.0-44.9, adult ([facility]) 05/12/2021 290 Obesity, morbid (more than 100 lbs over ideal weight or BMI > 40) ([facility]) 05/20/2015 Prediabetes 07/15/2015 Social History Socioeconomic History Marital status: Spouse name: Not on file Number of children: 2 Years of education: Not on file Highest education level: Not on file Occupational History Occupation: EMT Comment: [employer] Tobacco Use Smoking status: Former Current packs/day: 0.00 Average packs/day: 0.5 packs/day for 15.0 years (7.5 ttl pk-yrs) Types: Cigarettes Start date: 10/17/1998 Quit date: 10/17/2013 Years since quittin.0 Smokeless tobacco: Never Substance and Sexual Activity Alcohol use: Yes Alcohol/week: 1.0 standard drink of alcohol Types: 1 12 oz of beer per week Comment: occas Drug use: No Sexual activity: Yes Partners: Female Other Topics Concern Service No Blood Transfusions No Caffeine Concern Yes Occupational Exposure Yes Hobby Hazards No Sleep Concern No Stress Concern No Weight Concern Yes Special Diet No Back Care Not Asked Exercise Not Asked Bike Helmet Not Asked Seat Belt Yes Self-Exams Not Asked Social History Narrative EMT Social Needs Financial Resource Strain: Not on file Food Insecurity: No Food Insecurity (12/03/2019) Hunger Vital Sign Worried About Running Out of Food in the Last Year: Never true Ran Out of Food in the Last Year: Never true Transportation Needs: Not on file Social Connections: Not on file Housing Stability: Not on file O: Blood pressure 180/94, pulse 100, temperature 99 °F (37.2 °C), temperature source Tympanic, resp. rate 96, height 5' 9" (1.753 m), weight 280 lb (127 kg). GENERAL: alert and no distress NECK: supple, no adenopathy EYES: PERRLA, conjunctiva are pink and non-injected, sclera clear EARS: External ears normal, Canals clear, TM's Normal NOSE: no mucosal erythema, no mucosal edema, no purulent discharge OROPHARYNX: no exudate, no erythema, lips, buccal mucosa, and tongue normal, and mucous membranes are moist HEART: regular rate & rhythm, no murmur, and no gallops LUNGS: chest symmetric with normal AP diameter, no chest deformities noted, no chest wall tenderness, lungs clear to auscultation A:Bronchitis, complicated (Primary) - XR CHEST 2 VIEWS - RETURN TO WORK OR SCHOOL - Doxycycline Hyclate 100 MG Oral Capsule; Take 1 Capsule by mouth in the morning and 1 Capsule before bedtime. Do all this for 10 days. Until gone.. - Benzonatate 100 MG Oral Capsule; Take 1 Capsule by mouth 3 times a day as needed for Cough. Will xray chest. Start above meds. Rest, fluids. Any questions/problems, please call. If anything changes, worsens, develops new sx, please call [facility]. Follow Up: Return if symptoms worsen or fail to improve. Zeny Montes PA-C documented in this encounter Nursing Notes * Desirae Elaine LPN - 11/16/2024 10:53 AM EST Sinus infection? Last week congestion, runny nose Got worse through the week Headache/ pressure Tuesday started coughing & dry throat Severe sore throat Horrible cough since then. documented in this encounter Plan of Treatment Upcoming Encounters Date Type Department Care Team (Latest Contact Info) Description 05/13/2025 8:00 AM EDT Hospital Encounter ENDO OSS[facility], Endoscopy Room [facility] [address] [phone] Adarsh Hayes MD [address] [id number] 05/13/2025 8:00 AM EDT - 05/13/2025 8:30 AM EDT Surgery ENDO OSS, Endoscopy Room [facility] [address] [phone] Adarsh Hayes MD [address] [address] COLONOSCOPY FLEXIBLE PROXIMAL DIAGNOSTIC Scheduled Procedures Name Priority Associated Diagnoses Date/Ti nh COLONOSCOPY FLEXIBLE PROXIMAL DIAGNOSTIC Screening for colon [...] Not on filedocumented as of this encounter Procedures Procedure Name Priority Date/Time Associated Diagnosis Comments XR CHEST 2 VIEWS Routine 11/16/2024 11:1 3 AM EST Bronchitis, complicated documented in this encounter Results * XR CHEST 2 VIEWS (11/16/2024 11:13 AM EST) Anatomical Region Laterality Modality Chest Computed Radiogr aphy 11/16/2024 12:3 7 PM EST Impressions 11/16/2024 12:35 PM EST IMPRESSION 1. No compelling radiographic evidence of acute bacterial pneumonia or pulmonary edema. 2. Additional findings as above. Narrative 11/16/2024 12:35 PM EST EXAM XR CHEST 2 VIEWS-11/16/2024 11:13 am HISTORY cough COMPARISON XR CHEST 2 VIEWS, ACC: [id number], dated 2024-06-19 13:34:23; CHEST 2 VIEWS AP OR PA AND LATERAL, ACC: [id number], dated 2016-12-20 10:21:02; CHEST 2 VIEWS AP OR PA AND LATERAL, ACC: [id number], dated 2015-05-26 15:38:26 TECHNIQUE Radiography of the chest. XR CHEST 2 VIEWS FINDINGS No acute focal consolidation. No pulmonary edema. No pneumothorax or pleural effusion observed. Unremarkable cardiomediastinal silhouette.No acute osseous abnormality. Procedure Note Otoniel Trent MD - 11/16/2024 EXAM XR CHEST 2 VIEWS-11/16/2024 11:13 am HISTORY cough COMPARISON XR CHEST 2 VIEWS, ACC: [id number], dated 2024-06-19 13:34:23; CHEST 2 VIEWS AP OR PA AND LATERAL, ACC: [id number], dated [id number]; CHEST 2 VIEWS AP OR PA AND LATERAL, ACC: [id number], dated [id number] TECHNIQUE Radiography of the chest. XR CHEST 2 VIEWS FINDINGS No acute focal consolidation. No pulmonary edema. No pneumothorax orpleural effusion observed. Unremarkable cardiomediastinal silhouette.Noacute osseous abnormality. IMPRESSION IMPRESSION 1. No compelling radiographic evidence of acute bacterial pneumonia orpulmonary edema. 2. Additional findings as above. us Zeny Montes PA-C RADIOLOGY (RAD GENERAL) Fi nal Result documented in this encounter Visit Diagnoses Diagnosis Bronchitis, complicated- Primary Bronchitis, not specified as acute or chronic Screening for colon cancer Special screening for malignant neoplasms, colon documented in this encounter
--- OUTSIDE RECORDS SUMMARY | 2025-02-06 08:18 | External Medical Summary | Summary of Care ---
Author Name Unknown Organization [facility] Address [address] [place] [address] Phone [phone] Care Team Providers Care Information Systems Technician Name Role Phone Unavailable Primary Care Provider Unavailabl e Reason for Visit * Reason Comments Acute Encounter Details Date Type Department Care Team (Late st Contact Info) Description 11/26/2024 12:40 PM EST Office Visit Family Medicine [address] [phone] Kimi Johnson MD [address] [place] [address] [address] [phone] Post-viral cough syndrome*; Mild persistent asthma without complication; DM type 2, goal HbA1c < 7% ([facility]) Allergies Active Allergy Reactions Criticality Noted Date Comments Penicillins Hives High 03/21/2002 developed hives at end of amoxil documented as of this encounter (statuses as of 11/26/2024) Medications Contour Next Test In Vitro Strip (Glucose Blood)Indicatio ns:DM type 2, goal HbA1c < 7% (HCC) Use to test your blood sugar once a day 100 Strip 3 09/10/20 20 Active Karen Microlet LancetsIndicati ons:DM type 2, goal HbA1c < 7% ([facility]) Use to test blood sugar once a day 100 Each 3 09/10/20 20 Active Fluticasone Propionate 50 MCG/ACT Nasal Suspension Administer 1 [place] into nostril in the morning. 16 g 4 01/03/20 24 Active glipiZIDE ER 5 MG Oral Tablet Extended Release 24 Hour (Glucotrol XL)Indications: DM type 2, goal HbA1c < 7% (HCC) TAKE ONE TABLET BY MOUTH BEFORE FIRST MEAL OF THE DAY 90 Tablet 3 01/24/20 24 Active Irbesartan 150 MG Oral Tablet (Avapro)Indicat ions:Primary hypertension TAKE ONE TABLET BY MOUTH AT BEDTIME 90 Tablet 3 01/24/20 24 Active Cyclobenzaprine [...] bedtime. 360 Tablet 1 11/16/19 25 Active guaiFENesin-Cod eine 200-10 MG/5ML Oral Liquid Take 5 mL by mouth every 8 hours as needed for Cough. 150 mL 11/26/19 25 Active predniSONE 20 MG Oral Tablet (Deltasone) Take 2 Tablets by mouth in the morning for 5 days. 10 Tablet 11/26/19 25 025 Active Albuterol Sulfate HFA 108 (90 Base) MCG/ACT Inhalation Aerosol Solution Inhale 2 Puffs by mouth every 4 hours as needed for Cough, Shortness of Breath or Wheezing. 18 g 5 11/26/19 25 Active Albuterol Sulfate HFA 108 (90 Base) MCG/ACT Inhalation Aerosol SolutionIndicat ions:Mild persistent asthma with acute exacerbation Inhale by mouth 2 Puffs every 4 hours as needed for Cough, Shortness of Breath or Wheezing. 18 g 5 03/09/20 22 025 Discontinued(R efill) Doxycycline Hyclate 100 MG Oral CapsuleIndicati ons:Bronchitis, complicated Take 1 Capsule by mouth in the morning and 1 Capsule before bedtime. Do all this for 10 days. Until gone.. 20 Capsule 11/16/19 25 025 Discontinued Benzonatate 100 MG Oral CapsuleIndicati ons:Bronchitis, complicated Take 1 Capsule by mouth 3 times a day as needed for Cough. 30 Capsule 1 11/16/19 25 025 Discontinued documented as of this encounter (statuses as of 11/26/2024) Active Problems Problem Noted Date Diagnosed Date CKD (chronic kidney disease), stage II Overview (10/19/2021): EGFR 84 Morbid obesity with BMI of 40.0-44.9, adult 04/17 Overview (05/12/2021): 290 Chronic allergic rhinitis 11/02/2017 DM type 2, goal HbA1c < 7% 12/20/2016 Overview (07/08/2020): hgba1c 6.5 Mild persistent asthma without complication 08/17 Gastroesophageal reflux disease without esophagi tis 05/20/2015 Primary hypertension 08/31/2012 documented as of this encounter (statuses as of 11/26/2024) Resolved Problems Problem Noted Date Diagnosed Date [...] as of this encounter (statuses as of 11/26/2024) Immunizations Name Administration Dates Next Due COVID-19 mRNA, LNP-s, No Pre serve, 2-Dose Series (Moderna) 10/05/2021,11/11/2020,10/14/2020 COVID-19, MRNA-LNP, PF, 30 M CG/0.3 mL, 12 YRS AND ABOVE, IM (PFIZER-Comirnaty) 01/03/2024 Hepatitis B, 20+ yrs 05/06/2021,11/05/2020,09/02 Pneumococcal Conjugate Vacci ne, 20-valent ([id number]) 11/23/2022 Pneumococcal Polysaccharide PPV23 (Pneumovax) 11/02/2017 Seasonal [...] Sign Reading Time Taken Comments Blood Pressure 142/96 11/26/2024 12:27 PM EST Pulse 106 11/26/2024 12:27 PM EST Temperature 36.4 °C (97.6 °F) 11/26/2024 1 2:27 PM EST Respiratory Rate - - Oxygen Saturation 97% 11/26/2024 12: 27 PM EST Inhaled Oxygen Concentration - - Weight 127.6 kg (281 lb 4.8 oz) 025 12:27 PM EST Height 175.3 cm (5' 9") 11/26/2024 12:2 7 PM EST Body Mass Index 41.54 11/26/2024 12:27 PM EST documented in this encounter Progress Notes * Kimi Johnson MD - 11/26/2024 12:38 PM EST Images from the original note were not included. History of Present Illness Jonel Lamb is a 49 year old male that presents for Acute Seen about 10 days ago for bronchitis. Took doxy and tessalon. Has lingering cough. History of Present Illness The patient, with a history of asthma, presents with a persistent, non- productive cough that has been ongoing for at least a week. He was previously seen for similar symptoms and was treated with doxycycline and Tessalon Perles, which he completed two days ago. Despite this, his cough has not improved and is causing significant discomfort, including rib pain from the force of the coughing. The cough is particularly severe when he changes positions in bed, preventing him from getting a good night's sleep. He has been using a nebulizer and albuterol inhaler for breathing treatments, which provide temporary relief. He also reports shortness of breath with exertion, such as when shoveling snow. He has tried [id number]-[id number]-[id number] remedies including Nyquil and Mucinex, but these have not been effective. He denies fever and productive cough. Physical Exam BP 142/96 | Pulse 106 | Temp 97.6 °F (36.4 °C) (Tympanic) | Ht 5' 9" (1.753 m) | Wt 281 lb 4.8 oz(127.6 kg) | SpO2 97% | BMI 41.54 kg/m² | BSA 2.49 m² Physical Exam Vitals and nursing note reviewed. Constitutional: General: He is not in acute distress. HENT: Head: Normocephalic and atraumatic. Mouth/Throat: Mouth: Mucous membranes are moist. Eyes: Extraocular Movements: Extraocular movements intact. Neck: Thyroid: No thyromegaly. Cardiovascular: Rate and Rhythm: Normal rate and regular rhythm. Pulmonary: Breath sounds: Normal breath sounds. No wheezing (expiratory wheezes at bases) or rhonchi. Abdominal: General: Bowel sounds are normal. There is no distension. Palpations: Abdomen is soft. Tenderness: There is no abdominal tenderness. Musculoskeletal: General: Normal range of motion. Cervical back: Normal range of motion and neck supple. Lymphadenopathy: Cervical: No cervical adenopathy. Upper Body: Right upper body: No supraclavicular adenopathy. Left upper body: No supraclavicular adenopathy. Skin: General: Skin is warm and dry. Neurological: General: No focal deficit present. Mental Status: He is alert and oriented to person, place, and time. Psychiatric: Mood and Affect: Mood normal. Behavior: Behavior normal. Assessment and Plan Assessment & Plan Post-infectious cough A persistent, non-productive cough follows a recent upper respiratory infection. There are no signsof pneumonia on the chest x-ray and no fever. [id number] cough suppressants have been ineffective. Prescribe codeine cough syrup for symptomatic relief, primarily at night due to potential drowsiness. Start prednisone to reduce airway inflammation, with caution due to potential impact on blood glucose levels. Asthma Asthma is well-controlled with occasional use of albuterol via nebulizer. Recent increased use is due to the cough. Refill albuterol prescription. Follow up in 3 months for an established visit. Notify the office if there are changes such as fever or productive cough. Post-viral cough syndrome Mild persistent asthma without complication DM type 2, goal HbA1c < 7% ([facility]) Warned the steroid course may increase his sugars while on it. Usually well controlled, so acceptable risk Wrap-Up Follow Up: Return in about 3 months (around 02/23/2025) for Return with Physician- est visit. | For:Return with Physician- est visit Time: I spent a total of 10-19 minutes (exact time 18 mins) on the date of service in preparation, delivery, and documentation of the care provided to Jonel Lamb excluding any time spent in the performance of separately billed services. documented in this encounter Nursing Notes * Kirstie Kaba CMA - 11/26/2024 12:27 PM EST Sick Was seen a little over a week ago was given tessalon pearls and doxycycline. States finished doxy and tessalon pearls are no help. Still has persistent dry cough, and constantly having to clear his throat has been doing breath treatments more which help for a little bit documented in this encounter Plan of Treatment Upcoming Encounters Date Type Department Care Team (Latest Contact Info) Description 02/18/2025 6:00 PM EDT Office Visit Family [address] [phone] Kimi Johnson MD [address] [place] [address] [address] [phone] 05/13/2025 8:00 AM EDT Hospital Encounter ENDO [facility], Endoscopy Room [facility] [address] [phone] Adarsh Hayes MD [address] [place] [address] 05/13/2025 8:00 AM EDT - 05/13/2025 8:30 AM EDT Surgery ENDO [facility], Endoscopy Room [facility] [address] [phone] Adarsh Hayes MD [address] [place] [address] COLONOSCOPY FLEXIBLE PROXIMAL DIAGNOSTIC Scheduled Procedures Name [...] (1 of 2) 2024 COVID-19 Vaccine ( - season) 2024 01/03/2024, 10/05/2021, 11/11/2020, Additional history [...] as of this encounter Visit Diagnoses Diagnosis Post-viral cough syndrome- Primary Cough Mild persistent asthma without complication Unspecified asthma DM type 2, goal HbA1c < 7% (HCC) Screening for colon cancer Special screening for malignant neoplasms, colon documented in this encounter
--- OUTSIDE RECORDS SUMMARY | 2025-02-06 08:18 | External Medical Summary | Summary of Care ---
Author Name Unknown Organization [facility] Address [address] [place] [address] Phone [phone] Care Team Providers [facility] Programmer Name Role Phone Unavailable Primary Care Provider Unavailabl e Reason for Visit * Reason Comments eRx-Medication Refill Encounter Details Date Type Department Care Team ([facility] st Contact Info) Description 11/16/2024 Refill Family Medicine [address] [phone] Larry Stern PA-C [address] [place] [address] [place] [address] DM type 2, goal HbA1c < 7% ([facility]) Allergies Active Allergy Reactions Criticality Noted Date Comments Penicillins Hives High 03/21/2002 developed hives at end of amoxil documented as of this encounter (statuses as of 11/16/2024) Medications Contour Next Test In Vitro Strip (Glucose Blood)Indication s:DM type 2, goal HbA1c < 7% ([facility]) Use to test your blood sugar once a day 100 Strip 3 09/10/20 20 Active Karen Microlet LancetsIndicatio ns:DM type 2, goal HbA1c < 7% ([facility]) Use to test blood sugar once a day 100 Each 3 09/10/20 20 Active Albuterol Sulfate HFA 108 (90 Base) MCG/ACT Inhalation Aerosol SolutionIndicati ons:Mild persistent asthma with acute exacerbation Inhale by mouth 2 Puffs every 4 hours as needed for Cough, Shortness of Breath or Wheezing. 18 g 5 03/09/20 22 Active Fluticasone Propionate 50 MCG/ACT Nasal Suspension Administer 1 [place] into nostril in the morning. 16 g [...] 1 Tablet before bedtime. 03/03/20 24 Active metFORMIN HCl ER 500 MG Oral Tablet Extended Release 24 Hour (Glucophage XR)Indications:D M type 2, goal HbA1c < 7% (HCC) Take 2 Tablets by mouth in the morning and 2 Tablets before bedtime. 360 Tablet 1 11/16/19 25 Active Doxycycline Hyclate 100 MG Oral CapsuleIndicatio ns:Bronchitis, complicated Take 1 Capsule by mouth in the morning and 1 Capsule before bedtime. Do all this for 10 days. Until gone.. 20 Capsule 11/16/19 25 025 Active Benzonatate 100 MG Oral CapsuleIndicatio ns:Bronchitis, complicated Take 1 Capsule by mouth 3 times a day as needed for Cough. 30 Capsule 1 11/16/19 25 Active metFORMIN HCl ER 500 MG Oral Tablet Extended Release 24 Hour (Glucophage XR)Indications:D M type 2, goal HbA1c < 7% (HCC) Take 2 Tablets by mouth in the morning and 2 Tablets before bedtime. 360 Tablet 1 03/05/20 24 025 Discontinued documented as of this [...] yrs 05/06/2021,11/05/2020,09/02 Pneumococcal Conjugate Vacci ne, 20-valent ([id number]) 11/23/2022 Pneumococcal Polysaccharide PPV23 (Pneumovax) 11/02/2017 Seasonal [...] encounter Miscellaneous Notes * Telephone Encounter - Cinthia Grant RPh - 11/16/2024 3:07 PM ESTSigned Prescriptions: Disp Refills metFORMIN HCl ER 500 MG Oral Tablet Extend*360 Ta*1 Sig: Take 2 Tablets by mouth in the morning and 2 Tablets before bedtime.Authorizing Provider: LARRY STERN User: CINTHIA GRANT documented in this encounter Plan of Treatment Upcoming Encounters Date Type Department Care Team (Latest Contact Info) Description 05/13/2025 8:00 AM EDT Hospital Encounter [facility], Endoscopy Room [facility] [address] [place] [phone] Adarsh Hayes MD [address] [place] [id number] 05/13/2025 8:00 AM EDT - 05/13/2025 8:30 AM EDT Surgery ENDO [facility], Endoscopy Room [facility] [address] [place] [phone] Adarsh Hayes MD [address] [place] [address] COLONOSCOPY FLEXIBLE PROXIMAL DIAGNOSTIC Scheduled Procedures Name [...] as of this encounter Visit Diagnoses Diagnosis DM type 2, goal HbA1c < 7% (HCC) Screening for colon cancer Special screening for malignant neoplasms, colon documented in this encounter
--- OUTSIDE RECORDS SUMMARY | 2025-02-06 08:18 | External Medical Summary | Summary of Care ---
Author Name Unknown Organization [facility] Address [address] [place] [address] Phone [phone] Care Team Providers Care Surgical Specialist Name Role Phone Unavailable Primary Care Provider Unavailabl e Reason for Visit * Reason Comments eRx-Medication Refill Encounter Details Date Type Department Care Team (Late st Contact Info) Description 11/16/2024 Refill Family Medicine [address] [phone] Figueroa Espinosa MD [address] [place] [address] [place] [id number] Heartburn Allergies Active Allergy Reactions Criticality Noted Date Comments Penicillins Hives High 03/21/2002 developed hives at end of amoxil documented as of this encounter (statuses as of 11/16/2024) Medications Contour Next Test In Vitro Strip (Glucose Blood)Indication s:DM type 2, goal HbA1c < 7% ([facility]) Use to test your blood sugar once a day 100 Strip 3 09/10/20 20 Active Karen Microlet LancetsIndicatio ns:DM type 2, goal HbA1c < 7% ([facility]) Use to test blood sugar once a day 100 Each 3 09/10/20 20 Active Albuterol Sulfate HFA 108 (90 Base) MCG/ACT Inhalation Aerosol SolutionIndicati ons:Mild persistent asthma with acute exacerbation Inhale by mouth 2 Puffs every 4 hours as needed for Cough, Shortness of Breath or Wheezing. 18 g 5 03/09/20 22 Active Fluticasone Propionate 50 MCG/ACT Nasal Suspension Administer 1 [place] into nostril in the morning. 16 [...] 24 Active Famotidine 20 MG Oral Tablet (Pepcid)Indicati ons:Heartburn TAKE ONE TABLET BY MOUTH TWICE DAILY 180 Tablet 1 11/16/19 25 Active Doxycycline Hyclate [...] Cough. 30 Capsule 1 11/16/19 25 Active Famotidine 20 MG Oral Tablet (Pepcid AC Maximum Strength)Indicat ions:Heartburn one pill twice a day as needed for heartburn 60 Tablet 5 09/12/20 23 025 Discontinued metFORMIN HCl ER 500 MG Oral Tablet [...] yrs 05/06/2021,11/05/2020,09/02 Pneumococcal Conjugate Vacci ne, 20-valent ([id number]) 11/23/2022 Pneumococcal Polysaccharide PPV23 (Pneumovax) 11/02/2017 Seasonal [...] Notes * Telephone Encounter - Cinthia Grant RP - 11/16/2024 3:06 PM ESTSigned Prescriptions: Disp Refills Famotidine 20 MG Oral Tablet (Pepcid) 180 Ta*1 Sig: TAKE ONE TABLET BY MOUTH TWICE DAILYAuthorizing Provider: LARRY STERN User: CINTHIA GRANT----- documented in this encounter Plan of Treatment Upcoming Encounters Date Type Department Care Team (Latest Contact Info) Description 05/13/2025 8:00 AM EDT Hospital Encounter [facility], Endoscopy Room [facility] [address] [place] [address] [place] [phone] Adarsh Hayes MD [address] [place] [phone] 05/13/2025 8:00 AM EDT - 05/13/2025 8:30 AM EDT Surgery [facility]O [facility], Endoscopy Room [facility] [address] [place] [phone] Adarsh Hayes MD [address] [place] [phone] COLONOSCOPY FLEXIBLE PROXIMAL DIAGNOSTIC Scheduled Procedures Name [...] 11/23/2023 11/23/2022, 0 10/19/2021, 09/02/2020 Albumin/Creatinine Ratio 03/01/202403/01/2 023, 05/31/2022, 05/12/2021, Additional history exists Zoster Vaccines (1 of 2) 2024 COVID-19 Vaccine ( season) 2024 01/03/2024, 10/05/2021, 11/11/2020, Additional history exists Influenza Vaccine (FLU shot) (#1) 2024 06/17/2022, 08/17/2021, 06/17/2020, Additional history exists HbA1c 06/21/2024 12/20/2023, 0 04/2023, 05/31/2022, Additional history exists GFR 12/19/2024 12/20/2023, 0 04/2023, 10/19/2021, Additional history exists Lipid Panel 12/19/2028 12/20/2023, 04/2023, 10/19/2021, Additional history exists DTap/Tdap Vaccines [...] as of this encounter Visit Diagnoses Diagnosis Heartburn Screening for colon cancer Special screening for malignant neoplasms, colon documented in this encounter
--- OUTSIDE RECORDS SUMMARY | 2025-02-06 08:18 | External Medical Summary | Summary of Care ---
Author Name Unknown Organization [facility] Address [address] [place] [address] Phone [phone] Care Team Providers Care Manager Operating Name Role Phone Kimi Johnson MD Primary Care Pr ovider Reason for Visit * Reason Onset Date Comments Medication Problem 01/01/2025 Encounter Details Date Type Department Care Team ([facility] st Contact Info) Description 01/01/2025 Telephone Family Medicine [address] [phone] Kimi Johnson MD [address] [place] [address] [place] [phone] Medication Problem Allergies Active Allergy Reactions Criticality Noted Date Comments Penicillins Hives High 03/21/2002 developed hives at end of amoxil documented as of this encounter (statuses as of 01/01/2025) Medications Contour Next Test In Vitro Strip (Glucose Blood)Indication s:DM type 2, goal HbA1c < 7% ([facility]) Use to test your blood sugar once a day 100 Strip 3 09/10/20 20 Active Karen Microlet LancetsIndicatio ns:DM type 2, goal HbA1c < 7% ([facility]) Use to test blood sugar once a day 100 Each 3 09/10/20 20 Active Fluticasone Propionate 50 MCG/ACT Nasal Suspension Administer 1 [place] into nostril in the morning. 16 g [...] bedtime. 360 Tablet 1 11/16/19 25 Active guaiFENesin-Code ine 200-10 MG/5ML Oral Liquid Take 5 mL by mouth every 8 hours as needed for Cough. 150 mL 11/26/19 25 Active Albuterol Sulfate HFA 108 (90 Base) MCG/ACT Inhalation Aerosol Solution Inhale 2 Puffs by mouth every 4 hours as needed for Cough, Shortness of Breath or Wheezing. 18 g 5 11/26/19 25 Active Irbesartan 300 MG Oral Tablet (Avapro)Indicati ons:Primary hypertension Take 1 Tablet by mouth in the morning. 90 Tablet 3 01/02/20 25 Active predniSONE 20 MG Oral Tablet (Deltasone) Take 2 Tablets by mouth in the morning for 5 days. 10 Tablet 01/02/20 25 025 Active Fluticasone-Salm eterol 250-50 MCG/ACT Inhalation Aerosol Powder Breath Activated (Advair Diskus) Inhale 1 Puff by mouth in the morning and 1 Puff before bedtime. 60 Each 5 01/02/20 25 Active Fluticasone Propionate Diskus 50 MCG/ACT Inhalation Aerosol Powder Breath Activated Inhale 2 Puffs by mouth in the morning and 2 Puffs before bedtime. 1 Each 3 01/02/20 25 025 Discontinued documented as of this [...] yrs 05/06/2021,11/05/2020,09/02 Pneumococcal Conjugate Vacci ne, 20-valent ([id number]) 11/23/2022 Pneumococcal Polysaccharide PPV23 (Pneumovax) 11/02/2017 Seasonal [...] Telephone Encounter - Kimi Johnson MD - 01/01/2025 2:28 PM EDT Sent Advair. Thanks * Telephone Encounter - Jennifer Mendosa, catering driver - 01/01/2025 11:23 AM EDT Pharmacy called stating Fluticasone Propionate Diskus 50 MCG/ACT Inhalation Aerosol Powder Breath Activated product is not available. Pharmacy was wondering if dr could send in flovent inhaler or advair diskus. Thanks, Jennifer Mendosa Harmonic Analyst [facility] 01/01/2025,11:24 AM documented in this encounter Plan of Treatment Upcoming Encounters Date Type Department Care Team (Latest Contact Info) Description 01/15/2025 9:00 AM EDT Nurse Only Ancillary [address] [place] [address] [place], Nurse [address] [place] [address] 02/18/2025 6:00 PM EDT Office Visit Family Medicine [address] [place] [phone] Kimi Johnson MD [address] [place] [address] [place] [phone] 05/13/2025 8:00 AM EDT Hospital Encounter [facility]O [facility], Endoscopy Room [facility] [address] [place] [phone] Adarsh Hayes MD [address] [place] [phone] 05/13/2025 8:00 AM EDT - 05/13/2025 8:30 AM EDT Surgery ENDO [facility], Endoscopy Room [facility] [address] [place] [phone] Adarsh Hayes MD [address] [place] [address] COLONOSCOPY FLEXIBLE PROXIMAL DIAGNOSTIC Scheduled Procedures Name [...] filedocumented as of this encounter Care Teams Manager Operating Relationship Specialty Start Date End Date Kimi Johnson MD [address] [place] [address] [place] [phone] PCP - General Family Medicine 01/01/25 documented as of this encounter
[2025-02-06 08:26] LABS: Estimated Average Glucose 163 mg/dl; Hemoglobin A1C 7.3 % (4.5-5.6)
[2025-02-06] MEDS: ACETAMINOPHEN 1,000 MG/100 ML VIAL IV PRN (11:40)
[2025-02-06] MEDS: MoRPHine SULFATE 2 MG/ML CARP ONE (12:03)
[2025-02-06] MEDS ORDERED: Nursing to Pharmacy Communication SCH (16:00)
--- NOTE | 2025-02-06 16:49 | Hospitalist Progress Note ---
Date of Service February 06, 2025 Assessment & Plan (1) Sepsis: Plan: Sepsis Complicated diverticulitis with perforation Cholelithiasis Constipation --CT ABD: Few small descending and sigmoid diverticulosis with mild fat stranding is noted adjacent to the sigmoid diverticula along with pneumoperitoneum: suggestive of sigmoid diverticulitis with perforation. New finding. Uncomplicated cholelithiasis.-stable. Hepatic steatosis.-stable. --Blood cultures pending --Continue IV ertapenem, IV fluids, bowel rest Appreciate surgery input Pain control as needed Hypertension Blood pressure slightly elevated likely due to pain Continue irbesartan Hold HCTZ for now Monitor blood pressure Bronchial asthma Currently no signs of exacerbation stable DM II Hold p.o. medications Last HbA1c 6.9 Monitor blood glucose levels Continue insulin per protocol Thrombocytopenia Chronic No acute bleeding issues Monitor GERD Continue famotidine Morbid obesity BMI 40 DVT Px: Heparin SQ CODE STATUS Full code Admission and Anticipated Discharge Date Admission Date: February 06, 2025 Subjective Patient is seen and examined at bedside States having abdominal pain associate with some nausea Also feels abdominal distended No flatus, bowel movement today Denies any chest pain, dyspnea, vomiting, dizziness Review of Systems Review of Systems: All systems reviewed & are unremarkable except as noted in Subjective Physical Exam Physical Exam: Physical Exam: Vitals signs as noted above General Appearance:Obese, no apparent distress Head: normocephalic, Atraumatic Eyes: normal inspection, EOMI Neck: supple, Trachea midline Respiratory/Chest: Normal breath sounds, CTA, No accessory muscle use Cardiovascular: S1, S2, No murmur, tachycardia Abdomen/GI:Soft, mildly distended, tender, decreased bowel sounds present Extremities/Musculoskeletal:normal inspection, no edema Neurologic/Psych:AAOX3, grossly no focal neurological deficits Skin: normal color, warm Results & Data Results & Data Vital Signs (Past 12 Hours) Vital Signs Temp Pulse Pulse Resp BP Pulse Ox Pulse Ox 02/06/25 14:30 36.7 C 93 H 18 144/82 H 95 02/06/25 14:23 97 H 02/06/25 13:50 37.3 C 96 H 20 147/87 H 96 02/06/25 11:36 37.9 C H 106 H 16 135/84 96 02/06/25 10:14 37.6 C H 109 H 16 151/87 H 97 02/06/25 07:42 96 02/06/25 07:27 112 H 20 96 02/06/25 07:00 93 H 155/76 H 94 02/06/25 06:54 90 02/06/25 05:00 92 H 20 152/89 H 95 O2 Del Method O2 Del Method 02/06/25 14:30 Room Air 02/06/25 14:23 02/06/25 13:50 Room Air 02/06/25 11:36 Room Air 02/06/25 10:14 Room Air 02/06/25 07:42 Room Air 02/06/25 07:27 Room Air 02/06/25 07:00 Room Air 02/06/25 06:54 02/06/25 05:00 Room Air Laboratory Results Short CBC 02/05/25 02/06/25 Range/Units 23:49 06:07 WBC 10.66 9.83 (4.8-10.8) K/ul Hgb 14.6 14.4 (14.0-18.0) g/dl Hct 43.4 44.8 (42.0-52.0) % Plt Count 189 129 L (130-400) K/uL BMP 02/05/25 02/06/25 23:49 06:07 Sodium 135 L 135 L Potassium 3.8 4.3 Chloride 100 103 Carbon Dioxide 25 25 BUN 23 19 Creatinine 1.32 1.09 Glucose 227 H 167 H Calcium 8.9 8.4 L Liver Function 02/05/25 Range/Units 23:49 Total Bilirubin 1.4 H (0.2-1.0) mg/dl AST 10 L (13-39) U/L ALT 15 (7-52) U/L Alkaline Phosphatase 60 (34-104) U/L Albumin 4.1 (3.4-5.0) gm/dl Urine 02/06/25 Range/Units 00:46 Urine Color Yellow Urine Appearance Clear (Clear) Urine pH 5.0 (4.5-7.5) Ur Specific [place] > 1.045 H (1.000-1.030) Urine Protein Negative (Negative) Urine Glucose (UA) 2+ H (Negative)
[2025-02-06] MEDS: LOSARTAN POTASSIUM 50 MG TAB PO SCH (17:39)
[2025-02-06] MEDS: HEPARIN SOD 5,000 UNIT/0.5 ML VIAL SQ SCH (21:46)
[2025-02-06] MEDS: SODIUM CHLORIDE 0.65% NA SOLN 45 ML (OCEAN) PRN (22:34)
[2025-02-07] MEDS ORDERED: ERTAPENEM 1000MG 1,000 MG/10 ML SYR IV SCH
[2025-02-07 07:24] LABS: Hematocrit (blood only) 36.7 % (42.0-52.0); Hemoglobin 12.2 g/dl (14.0-18.0); Mean Corpuscular Hemoglobin 28.1 pg (25.0-34.0); Mean Corpuscular Hgb Conc 33.2 g/dL (32.0-36.0); Mean Corpuscular Volume 84.6 fL (80.0-100.0); Mean Platelet Volume 11.3 fL (9.4-12.4); Platelet Count 144 K/uL (130-400); RDW Coefficient of Variation 12.8 % (11.5-14.5); RDW Standard Deviation 39.8 fL (36.4-46.3); Red Blood Count 4.34 M/uL (4.70-6.10); White Blood Count 6.49 K/ul (4.8-10.8)
[2025-02-07 07:45] LABS: BUN Creatinine Ratio 16.3 (10-20); Calcium 8.4 mg/dl (8.6-10.3); Creatinine Clr Calc Pharmacy 124.1 ml/min; Magnesium 1.8 mg/dl (1.7-2.4); Potassium 3.8 mmol/L (3.5-5.1)
--- NOTE | 2025-02-07 07:46 | Surgery Progress Note ---
<Statement entered by Barbara Gomez DO - 02/07/25 10:31> I have seen and examined this patient this am. He feels much better. His pain is much improved. He may have clear liquids but slow. He is advised to stop clears should he experience any abdominal cramping. Date of Service February 07, 2025 Assessment & Plan (1) Pneumoperitoneum: Plan: Diverticulitis with noted Pneumoperitoneum on CT scan Improvement in abd pain from yesterday soft , TTP LLQ OOB ambulating w/o difficulty vss, wbc 6 , afebrile denies n/v +flatus no bm yet will continue with sip /chips this AM possible diet advancement later today vs tomorrow Continue IV abx and fluids Admission and Anticipated Discharge Date Admission Date: February 06, 2025 Subjective pt reports significant improvement in abd pain +flatus no n/v Review of Systems Respiratory: no dyspnea Cardiovascular: no chest pain Gastrointestinal: + abdominal pain; no nausea and no vomit ing Genitourinary: no dysuria Physical Exam Constitutional: cooperative and comfortable; no acute distress Respiratory: normal respiratory effort; no respiratory distress Cardiovascular: Rate/Rhythm: + tachycardic (91) Gastrointestinal (Abdomen): Inspection/Auscultation: abdomen not distended Percussion/Palpation: + abdomen tender (LLQ) and abdomen soft Results & Data Vital Signs (Past 12 Hours) Vital Signs Temp Pulse Pulse Pulse Resp BP BP 02/07/25 07:31 97.5 F L 91 H 18 148/82 H 02/07/25 07:30 82 02/07/25 03:55 98.8 F 85 20 118/77 02/06/25 23:27 98.4 F 97 H 20 133/82 02/06/25 21:49 95 H 02/06/25 19:44 98.2 F 87 20 144/81 H Pulse Ox O2 Del Method 02/07/25 07:31 97 Room Air 02/07/25 07:30 02/07/25 03:55 94 Room Air 02/06/25 23:27 94 Room Air 02/06/25 21:49 02/06/25 19:44 93 Room Air Results CBC w Diff Results: RBC 4.34 M/uL (4.70-6.10) L 02/07/25 WBC 6.49 K/ul (4.8-10.8) 02/07/25 Hgb 12.2 g/dl (14.0-18.0) L 02/07/25 Hct 36.7 % (42.0-52.0) L 02/07/25 MCV 84.6 fL (80.0-100.0) 02/07/25 MCH 28.1 pg (25.0-34.0) 02/07/25 MCHC 33.2 g/dL (32.0-36.0) 02/07/25 RDW Standard Deviation 39.8 fL (36.4-46.3) 02/07/25 RDW Coefficient of Variation 12.8 % (11.5-14.5) 02/07/25 Plt Count 144 K/uL (130-400) 02/07/25 MPV 11.3 fL (9.4-12.4) 02/07/25 Neutrophils (%) (Auto) 82.1 % 02/06/25 Lymphocytes (%) (Auto) 7.5 % 02/06/25 Monocytes # (Auto) 0.92 K/uL (0.11-0.59) H 02/06/25 Eosinophils # (Auto) 0.02 K/uL (0.00-0.50) 02/06/25 Immature Granulocyte % (Auto) 0.5 % 02/06/25 Neutrophils # (Auto) 8.07 K/uL (1.40-6.50) H 02/06/25 Lymphocytes # (Auto) 0.74 K/uL (1.20-3.40) L 02/06/25 Monocytes # (Auto) 0.92 K/uL (0.11-0.59) H 02/06/25 Eosinophils # (Auto) 0.02 K/uL (0.00-0.50) 02/06/25 Basophils # (Auto) 0.03 K/uL (0.00-0.20) 02/06/25 Immature Granulocyte # (Auto) 0.05 K/uL (0.01-0.20) 5 PG Care Time/CCT Total # of Minutes Spent Total Time Spent with Patient: Total time spent is greater than 50% in coordination of care (as documented) at patient's floor/unit and/or counseling patient: Coding Level of Care Code 04478 SUB INP/OBS CARE 11/10MIN Diagnoses Pneumoperitoneum K66.8
[2025-02-07] MEDS: SODIUM CHLORIDE 0.9% 1,000 ML IV ONE (08:01)
[2025-02-07] MEDS: ERTAPENEM 1000MG 1,000 MG/10 ML SYR IV SCH (11:13)
[2025-02-07] MEDS ORDERED: Nursing to Pharmacy Communication SCH (13:15)
--- NOTE | 2025-02-07 15:43 | Hospitalist Progress Note ---
Date of Service February 07, 2025 Assessment & Plan (1) Sepsis: Plan: per Dr Hubbard's notes with addendum: Sepsis Complicated diverticulitis with perforation Cholelithiasis Constipation --CT ABD: Few small descending and sigmoid diverticulosis with mild fat stranding is noted adjacent to the sigmoid diverticula along with pneumoperitoneum: suggestive of sigmoid diverticulitis with perforation. New finding. Uncomplicated cholelithiasis.-stable. Hepatic steatosis.-stable. --Blood cultures pending --Continue IV ertapenem, IV fluids, bowel rest Appreciate surgery input Pain control as needed 02/07 Clinically improving Afebrile, no leukocytosis Abdominal pain much better Continue ertapenem [place] clear liquids Appreciate GI service recommendations Hypertension Blood pressure slightly elevated likely due to pain Continue irbesartan Hold HCTZ for now Monitor blood pressure- Improving overall Bronchial asthma Currently no signs of exacerbation stable DM II Hold p.o. medications Last HbA1c 6.9 Monitor blood glucose levels Continue insulin per protocol Thrombocytopenia Chronic No acute bleeding issues Monitor GERD Continue famotidine Morbid obesity BMI 40 DVT Px: Heparin SQ CODE STATUS Full code disposition Anticipate discharge to home when medically stable Admission and Anticipated Discharge Date Admission Date: February 06, 2025 Subjective Follow-up for perforated acute diverticulitis, etc. Seen resting in bed, watching TV, comfortable, in good spirits, very pleasant States he feels much better compared to yesterday Left lower quadrant pain is currently 2 out of 10, yesterday it was 9 out of 10 Able to move around better, able to ambulate in the hallways No nausea or vomiting, fevers or chills No other new symptoms Review of Systems Review of Systems: all noted and negative except for above Physical Exam Physical Exam: General- oriented x 3, not in distress, speaks in sentences with no effort or accessory muscle use Eyes- anicteric Neck- no JVD Lungs- clear breath sounds bilaterally, no rales/wheezes Heart- normal rate, regular rhythm; no murmurs Abdomen- normal bowel sounds, nondistended, soft, nontender Extremities- no pretibial edema, no calf tenderness Neuro- alert, oriented x 3; no gross focal neurologic deficits Skin- warm & dry Results & Data Results & Data Vital Signs (Past 12 Hours) Vital Signs Temp Pulse Pulse Pulse Resp BP BP 02/07/25 15:39 36.9 C 74 18 148/87 H 02/07/25 14:59 84 02/07/25 11:40 36.3 C L 74 18 138/83 02/07/25 07:31 36.4 C L 91 H 18 148/82 H 02/07/25 07:30 82 02/07/25 03:55 37.1 C 85 20 118/77 Pulse Ox O2 Del Method 02/07/25 15:39 99 Room Air 02/07/25 14:59 02/07/25 11:40 97 Room Air 02/07/25 07:31 97 Room Air 02/07/25 07:30 02/07/25 03:55 94 Room Air all noted and reviewed including below
[2025-02-07] MEDS: INSULIN ASPART PER UNIT CHARGE SC SCH (17:45)
[2025-02-08] MEDS: MELATONIN 3 MG TAB PO PRN (00:52)
[2025-02-08 06:55] LABS: Hemoglobin 11.8 g/dl (14.0-18.0); Mean Corpuscular Hemoglobin 28.2 pg (25.0-34.0); Mean Corpuscular Hgb Conc 33.7 g/dL (32.0-36.0); Mean Corpuscular Volume 83.7 fL (80.0-100.0); Platelet Count 127 K/uL (130-400); RDW Coefficient of Variation 12.2 % (11.5-14.5); RDW Standard Deviation 37.2 fL (36.4-46.3); Red Blood Count 4.18 M/uL (4.70-6.10); White Blood Count 5.05 K/ul (4.8-10.8)
[2025-02-08 07:21] LABS: BUN Creatinine Ratio 13.4 (10-20); Calcium 8.3 mg/dl (8.6-10.3); Creatinine Clr Calc Pharmacy 118.6 ml/min; Potassium 3.8 mmol/L (3.5-5.1)
[2025-02-08 08:13] VITALS: O2SAT 98
[2025-02-08 08:38] LABS: Ferritin 221.7 ng/ml (8-388)
--- NOTE | 2025-02-08 08:42 | Surgery Progress Note ---
Date of Service February 08, 2025 Assessment & Plan (1) Diverticulitis: Plan Pt has progressed very well. Advance diet to full liquids and may discharge after lunch if no issues. Discharge on full liquids, advance to low fiber tomorrow. Abx for a total of 14 days Admission and Anticipated Discharge Date Admission Date: February 06, 2025 Subjective Pt seen and examined this am. He feels well, denies any abdominal pain, continues to pass gas and states he has done well with clears without abdominal pains/cramping. Physical Exam Constitutional: + obese; not ill appearing, not in distr ess and not diaphoretic Respiratory: normal respiratory effort; no respiratory distress, no labored breathing and does not use accessory muscles Gastrointestinal (Abdomen): Inspection/Auscultation: abdomen normal to inspection Percussion/Palpation: abdomen soft; abdomen nontender Results & Data Vital Signs (Past 12 Hours) Vital Signs Temp Pulse Pulse Resp BP BP Pulse Ox 02/08/25 08:07 36.3 C L 73 19 148/84 H 98 02/08/25 07:08 72 02/08/25 04:00 36.6 C 74 20 134/83 97 02/07/25 23:57 36.7 C 77 20 137/84 96 02/07/25 21:47 77 O2 Del Method 02/08/25 08:07 Room Air 02/08/25 07:08 02/08/25 04:00 Room Air 02/07/25 23:57 Room Air 02/07/25 21:47 PG Care Time/CCT Total # of Minutes Spent Total Time Spent with Patient: Total time spent is greater than 50% in coordination of care (as documented) at patient's floor/unit and/or counseling patient: Coding Level of Care Code 48304 SUB INP/OBS CARE 11/10MIN Diagnoses Diverticulitis K57.92
[2025-02-08 09:16] LABS: Folate (Folic Acid),Ser orPlas 11.87 ng/ml (>5.38)
[2025-02-08 12:52] VITALS: BP 146/86; RESP 16; TEMP 97.5
--- NOTE | 2025-02-08 14:47 | Discharge Summary ---
Discharge Summary Date of Service February 08, 2025 Principal Dx & Hospital Course #1 = Principal Diagnosis (1) Sepsis: Mr. Lamb is a 49 yo gentleman with medical history significant for hypertension, bronchial asthma, DM2 on oral medications, GERD, past tobacco abuse who is admitted for complicated diverticulitis with perforation. Patient was noted to be septic, but responded well to management with IV abx and bowel rest. Diet was advanced to full liquids without complication. General surgery followed and reported plan for 14 days of po abx and recommended c-scope in 6-8 weeks. Patient was on 48 hours of ertapenem then discharged with cipro and fl agyl for 12 mores days for 14 days total. On day of discharge, patient was eating well, ambulating without difficulty passing flatus, and denied any new concerns as well as endorsed resolution of abdominal pain. #Sepsis ispo complicated diverticulitis with perforation #pneumoperitoneum #Cholelithiasis #Constipation --CT ABD: Few small descending and sigmoid diverticulosis with mild fat stranding is noted adjacent to the sigmoid diverticula along with pneumoperitoneum: suggestive of sigmoid diverticulitis with perforation. New finding. Uncomplicated cholelithiasis.-stable. Hepatic steatosis.-stable. --Blood cultures pending encouraged bowel regimen at home no further abdominal pain Transition to cipro/flagyl for discharge Plan for c-scope 6-8 weeks Low fiber diet for 2 weeks #Hypertension resume home regimen #Bronchial asthma Currently no signs of exacerbation stable #DM II resume home regimen 3Thrombocytopenia Chronic No acute bleeding issues Monitor #GERD Continue famotidine #Morbid obesity BMI 40, encouraged healthy lifestyle and aerobic activity Notes For Next Care Provider Colonoscopy in 6-8 weeks recommended Medication Changes From Visit Ciprofloxacin 500mg bid x 12 days Flagyl 500mg q8h x 12 days Admission HPI Per Admitting Provider History obtained from patient, family, and records. Medical history significant for hypertension, bronchial asthma, DM2 on oral medications, GERD, past tobacco abuse. Few days history of achy lower abdominal pain which slowly progressed. Constipation symptoms which is unusual for him. Chills at home. Denies chest pain, SOB. Cipro and Flagyl administered at the ER for perforated sigmoid diverticulitis on CT. Medical History as above No prior colonoscopies Surgical History : None Family History : Asthma, DM, heart disease Personal/Social history : Past tobacco abuse, occasional EtOH intake, EMT Admission Exam Per Admitting Provider GENERAL: Slightly uncomfortable, morbidly obese, pleasant, no respiratory distress SKIN: Normal color, warm HEENT: Respectful, [place] palpebral conjunctivae, no ptosis, dry buccal mucosa NECK : Supple, no tenderness CHEST : CTA, no tenderness HEART : RRR, no obvious murmurs ABDOMEN: Some distention, hypogastric tenderness EXTREMITIES : Minimal LE swelling, no LE tenderness, palpable pulses, no other conspicuous deformities noted NEUROLOGIC : Coherent, no facial asymmetry, no other gross focality Discharge Exam Constitutional WD/WN, vitals as above Respiratory normal respiratory effort, lungs clear to auscultation Cardiovascular RRR, no murmur, no edema Gastrointestinal (Abdomen) normal bowel sounds, soft, nontender, no hepatosplenomegaly Musculoskeletal no cyanosis or clubbing, extremities motor strength 5/5 Updated Medication List Medication Instructions Recorded Confirmed Type albuterol sulfate 90 mcg/actuation 2 puff inhalation Q4 PRN 02/06/25 02/06/25 History aerosol inhaler COUGH,SOB,WHEEZING codeine 10 mg-guaifenesin 100 mg/5 5 ml PO Q8 PRN Cough 02/06/25 02/06/25 History mL oral liquid famotidine 20 mg tablet 20 mg PO BID 02/06/25 02/06/25 History fluticasone 250 mcg-salmeterol 50 1 inh inhalation AMHS 02/06/25 02/06/25 History mcg/dose blistr powdr for inhalation glipizide 5 mg tablet, extended 5 mg PO DAILYBB 02/06/25 02/06/25 History release 24 hr hydrochlorothiazide 12.5 mg capsule 12.5 mg PO QAM 02/06/25 02/06/25 History irbesartan 300 mg tablet 300 mg PO QAM 02/06/25 02/06/25 History metformin 500 mg tablet,extended 1,000 mg PO AMHS 02/06/25 02/06/25 History release 24 hr ciprofloxacin HCl 500 mg tablet 500 mg PO BID #24 tabs 02/08/25 Rx metronidazole 500 mg tablet 500 mg PO Q8H 12 days #36 tabs 02/08/25 Rx Hospital Stay Data Consultations 02/06/25 03:41 ED Decision to Admit Stat Diagnostic Imagining Performed 02/05/25 23:49 CT abd pelvis IV con only Stat Pending Results Patient Have Any Pending Studies at Discharge: No Discharge Instructions Given to Patient (Per Discharging Provider) Continue on a full liquid diet over the next 24 hours. If you do well with this without worsening pain or cramping you may then advance to a low fiber diet thereafter. Continue on a low fiber diet for the next 2-3 weeks. You should undergo colonoscopy in the next 6-8 weeks timeframe for evaluation after this episode of diverticulitis. Complete the full course of antibiotic prescribed to you Total Time Total Time Spent Total Time Spent (In Minutes): 45
[2025-02-08 15:00] VITALS: PULSE 69
== END 2025-02-08 16:13 | disposition home or self-care (01) | DRG 872 ==
LOC: ED 23:28 → EDINP 02-06 04:49 → SUATTDRO 02-06 04:49 → 2N 02-06 06:35
DX: A41.9 Sepsis, unspecified organism; K57.20 Diverticulitis of large intestine with perforation and abscess without bleeding; Z88.2 Allergy status to sulfonamides; Z79.899 Other long term (current) drug therapy; Z68.41 Body mass index [BMI] 40.0-44.9, adult; K80.20 Calculus of gallbladder without cholecystitis without obstruction; Z87.891 Personal history of nicotine dependence; I10 Essential (primary) hypertension; E11.9 Type 2 diabetes mellitus without complications; J45.909 Unspecified asthma, uncomplicated; K59.00 Constipation, unspecified; K21.9 Gastro-esophageal reflux disease without esophagitis; Z88.0 Allergy status to penicillin; Z88.8 Allergy status to other drugs, medicaments and biological substances; D69.6 Thrombocytopenia, unspecified; E66.01 Morbid (severe) obesity due to excess calories; Z79.84 Long term (current) use of oral hypoglycemic drugs